=== PATIENT | male | born 1950 | race Caucasian/White ===

== ENCOUNTER 2019-05-20 20:47 | Inpatient (IN) | payer OTHER, MEDICAID ==
[~2019-05-20] VITALS: Ht 160 cm; Wt 75.7 kg
[2019-05-20 20:56] VITALS: BP_SYST 141
[2019-05-20] MEDS ORDERED: LEVE500T9 PO (20:56)
[2019-05-20] MEDS ORDERED: IPRA3AMP9 INH ×2 (20:56→21:10)
[2019-05-20] MEDS ORDERED: DIGO250T78 PO (20:57)
[2019-05-20] MEDS ORDERED: LIP10 PO (20:58)
[2019-05-20] MEDS ORDERED: FAMO20TA8 PO (20:59)
[2019-05-20] MEDS ORDERED: PRED5TAB PO (21:00)
[2019-05-20] MEDS ORDERED: LORA10TA7 PO (21:00)
[2019-05-20] MEDS ORDERED: CALC500T87 PO (21:06)
[2019-05-20] MEDS ORDERED: CARB15DR93 OT (21:06)
[2019-05-20] MEDS ORDERED: POLY15DR31 OP (21:07)
[2019-05-20] MEDS ORDERED: MECL-110 PO (21:08)
[2019-05-20] MEDS ORDERED: CAT.1 PO (21:09)
[2019-05-20] MEDS ORDERED: HYDR-4272 PO (21:10)
--- NOTE | 2019-05-20 21:10 | NUR ---
Patient to ER bed 07 to gown for evaluation. Side rails up.
[2019-05-20] MEDS ORDERED: ACET-2165 PO ×2 (21:11→21:14)
[2019-05-20] MEDS ORDERED: ACET-2634 PO (21:13)
[2019-05-20] MEDS ORDERED: AMIT25TA9 PO (21:17)
[2019-05-20] MEDS ORDERED: ZOLP5TAB2 PO (21:17)
[2019-05-20] MEDS ORDERED: SERT50TA PO (21:18)
[2019-05-20] MEDS ORDERED: SER100 PO (21:22)
[2019-05-20] MEDS ORDERED: SSREG SUBCUT (21:28)
[2019-05-20 21:31] LABS: BASOPHILS # (AUTO) 0.1 K/uL (0.0-0.2); BASOPHILS % (AUTO) 0.7 % (0.0-2.0); EOSINOPHILS # (AUTO) 0.1 K/uL (0.0-0.4); EOSINOPHILS % (AUTO) 0.6 % (0.0-4.0); HEMATOCRIT 43.9 % (36-54); HEMOGLOBIN 14.8 g/dL (14.0-18.0); LYMPHOCYTES # (AUTO) 1.5 K/uL (1.0-5.5); LYMPHOCYTES % (AUTO) 14.6 % (20.5-51.5); MEAN CORPUSCULAR HEMOGLOBIN 30 pg (27-31); MEAN CORPUSCULAR HGB CONC 34 % (32-36); MEAN CORPUSCULAR VOLUME 88 fL (79.0-98.0); MONOCYTES # (AUTO) 0.7 K/uL (0.0-1.0); MONOCYTES % (AUTO) 6.4 % (1.7-9.3); NEUTROPHILS # (AUTO) 8.1 K/uL (1.8-7.7); NEUTROPHILS % (AUTO) 77.7 % (40.0-70.0); PLATELET COUNT (AUTO) 256 K/uL (130-430); RED BLOOD CELL COUNT(AUTO) 5.01 MIL/uL (4.2-6.2); RED CELL DISTRIBUTION WIDTH 14.4 % (9.0-15.0); WHITE BLOOD COUNT (AUTO) 10.4 K/uL (4.8-10.8)
[2019-05-20] MEDS ORDERED: NACL 0.9% 1,000 ML IV ONE (21:39)
--- NOTE | 2019-05-20 21:44 | NUR ---
Medication reconciliation completed with information provided by Charlotte. Any prior medication reconciliation on file was reviewed and corrected.
--- NOTE | 2019-05-20 21:45 | NUR ---
Dr Love at bedside examining patient
--- NOTE | 2019-05-20 21:46 | NUR ---
Pt brought by ambulance, A&Ox4, weakness noted on L side of body due to Hx of stroke, per staff members pt has increase agitation and has been breaking objects, skin pink and warm, cap refill <3, VSS, respirations even and unlabored, pt calm and coperative at this time, will cont to monitor.
--- NOTE | 2019-05-20 21:48 | NUR ---
Attempted to start I&O catheter x 2, unable to obtain urine, Dr Love notified.
--- NOTE | 2019-05-20 21:50 | NUR ---
Pt off the unit for CT
--- NOTE | 2019-05-20 21:55 | NUR ---
Attempted I&0 catheter, unable to obtain urine
--- NOTE | 2019-05-20 22:04 | NUR ---
Pt returned from CT on stable condition
[2019-05-20 22:05] LABS: PROTHROMBIN TIME 10.1 SECS (9.5-12.5)
--- NOTE | 2019-05-20 22:14 | NUR ---
Pt A&Ox3, VSS, respirations even and unlabored
[2019-05-20 22:25] LABS: CREATININE 0.88 mg/dL (0.55-1.30); POTASSIUM 3.3 mmol/L (3.5-5.1)
[2019-05-20 22:30] LABS: ALBUMIN 2.6 g/dL (3.4-4.8); TOTAL BILIRUBIN 0.7 mg/dL (0.0-1.0)
--- NOTE | 2019-05-20 23:21 | NUR ---
Patient's code status is DNR paperwork completed and placed in chart.
[2019-05-21 00:06] LABS: THYROID STIMULATING HORMONE 0.89 uIu/mL (0.34-4.82)
[2019-05-21 00:07] LABS: DIGOXIN 1.9 ng/mL (0.80-2.00)
--- NOTE | 2019-05-21 00:35 | NUR ---
PATIENT HAD A BOWEL MOVEMENT. CLEANED AND SHEETS CHANGED.
--- NOTE | 2019-05-21 00:50 | NUR ---
Patient will be admitted to care of DR. Hall. Admitted to Med Surg unit. Will go to room 113A. Belongings list completed. Summary report printed. Report will be given at bedside.
--- NOTE | 2019-05-21 00:51 | NUR ---
Transfer to [facility]. IV present no sign or symptom of infiltration.
--- NOTE | 2019-05-21 00:58 | NUR ---
ADMISSION: The patient, JEAN CARLOS MENDEZ, 68 y/o, M admitted by YOHANA WOMACK MD, was given written information regarding hospital policies, unit procedures and contact persons.
--- NOTE | 2019-05-21 01:20 | NUR ---
Pt is screaming out loud and attempting to get out of bed. Pt is restless and will not follow directions to stay in bed. Contacted Dr. Hall and orders given for bilateral soft wrist restraints and IV Ativan. Addendum: 05/21/19 at 0254 by Michela Walls RN RN called pt's contact Lovely Navarro to obtain consent for restraints, but got voice mail. RN left a voice mail message only stating that the contact should call back. Left call back phone number on the voice mail. RN then contacted pt's cousin Syd Bhagat Sr who is also listed as a contact. Per Constance Olayinka, Lovely Navarro has DPOA. After RN informed him Lovely could not be reached at this time, Mr. Bhagat gave the okay to apply restraints on pt for his safety.
[2019-05-21] MEDS: LORazepam 2 MG/ML VIAL IVP PRN ×3 (01:26→17:48)
--- NOTE | 2019-05-21 01:26 | NUR ---
Pt remains restless and still attempting to get out of bed. Ativan 1mg was given IVP. Fall, seizure and safety and safety precautions are in place. Pt's room is across from the Nurses' Station.
[2019-05-21 01:30] VITALS: BP_SYST 159
[2019-05-21] MEDS ORDERED: IPRATROPIUM/ALBUTEROL SULFATE 3 ML AMPUL.NEB (DUONEB) INH PRN ×2 (02:00)
[2019-05-21] MEDS ORDERED: ACETAMINOPHEN 500 MG TABLET PO PRN (02:00)
[2019-05-21] MEDS ORDERED: PEG 400/HYPROMELLOSE/GLYCERIN 15 ML DROPS OP PRN ×2 (02:00→06:53)
[2019-05-21] MEDS ORDERED: ACETAMINOPHEN 325 MG TABLET PO PRN ×2 (02:00)
[2019-05-21] MEDS ORDERED: cloNIDine HCL 0.1 MG TABLET PO PRN (02:00)
[2019-05-21] MEDS ORDERED: INSULIN REGULAR, HUMAN 100 UNITS/ML, 10 ML VIAL (humuLIN R) SUBCUT PRN (02:00)
[2019-05-21] MEDS ORDERED: MECLIZINE HCL 25 MG TABLET (ANITVERT) PO PRN (02:00)
[2019-05-21] MEDS ORDERED: LORATADINE 10 MG TABLET PO PRN (02:00)
--- NOTE | 2019-05-21 02:00 | NUR ---
Pt is still restless and saying, "Call the police." Bilateral soft wrist restraints are in place and no circulatory impairment or respiratory distress noted.
--- NOTE | 2019-05-21 04:00 | NUR ---
Pt is sleeping quietly in bed. Saline lock in RH is without any signs of infiltration. Fall, seizure and safety precautions are in place.
[2019-05-21] MEDS ORDERED: GLUCOSE 15 GM GEL (in 37.5 GM TUBE) PO PRN (04:30)
--- NOTE | 2019-05-21 05:05 | NUR ---
CONSULT: CONSULT CALLED FOR DR. KAITLIN Barker SPOKE WITH LISSA LÓPEZ REASON FOR CONSULT: ENCEPHALOPATHY AND BEHAVIORAL PROBLEMS WITH HX CVA REQUESTING CONSULT: TONG WATERSIDE WORKER PHONE NUMBER: [phone]
--- NOTE | 2019-05-21 05:08 | NUR ---
CONSULT: CONSULT CALLED FOR DR. ALBERT I SPOKE WITH LISSA LÓPEZ REASON FOR CONSULT: CONFUSION REQUESTING CONSULT: DR. WOMACK PROCESS COACH PHONE NUMBER: [phone]
--- NOTE | 2019-05-21 06:00 | NUR ---
Pt is sleeping quietly in bed. All pt's needs were attended to. Fall and safety precautions are in place. Will endorse to day shift nurse.
[2019-05-21 07:07] LABS: BASOPHILS % (AUTO) 0.4 % (0.0-2.0); EOSINOPHILS # (AUTO) 0.2 K/uL (0.0-0.4); EOSINOPHILS % (AUTO) 2.1 % (0.0-4.0); HEMATOCRIT 45.2 % (36-54); HEMOGLOBIN 14.9 g/dL (14.0-18.0); LYMPHOCYTES # (AUTO) 2.2 K/uL (1.0-5.5); MEAN CORPUSCULAR HEMOGLOBIN 29 pg (27-31); MEAN CORPUSCULAR HGB CONC 33 % (32-36); MEAN CORPUSCULAR VOLUME 89 fL (79.0-98.0); MONOCYTES # (AUTO) 0.7 K/uL (0.0-1.0); MONOCYTES % (AUTO) 7.5 % (1.7-9.3); NEUTROPHILS # (AUTO) 5.9 K/uL (1.8-7.7); PLATELET COUNT (AUTO) 246 K/uL (130-430); RED BLOOD CELL COUNT(AUTO) 5.07 MIL/uL (4.2-6.2); RED CELL DISTRIBUTION WIDTH 14.8 % (9.0-15.0)
[2019-05-21 07:30] LABS: ALBUMIN 2.5 g/dL (3.4-4.8); CALCIUM 8.4 mg/dL (8.4-11.0); CREATININE 0.78 mg/dL (0.55-1.30); POTASSIUM 3.2 mmol/L (3.5-5.1); TOTAL BILIRUBIN 0.7 mg/dL (0.0-1.0)
--- NOTE | 2019-05-21 07:35 | NUR ---
OPENING NOTES: RECEIVED PATIENT FROM CNC LATHE MACHINIST NURSE. PATIENT IS ASLEEP IN BED. NO SIGNS OF DISTRESS OR SHORTNESS OF BREATH NOTED. BILATERAL WRIST RESTRAINTS IN PLACE WITH TWO FINGER LENGTH SPACE. PATIENT TOLERATING OXYGEN AT ROOM AIR. IV SITE PATENT WITH NO SIGNS OF INFILTRATION. PATIENT IN STABLE CONDITION. SAFETY, FALL, ASPIRATION AND SEIZURE PRECAUTIONS ARE IN PLACE. BED LOCKED IN LOWEST POSITION WITH CALL LIGHT IN REACH. WILL CONTINUE TO MONITOR PATIENT FOR ANY CHANGES.
[2019-05-21 08:18] VITALS: BP_SYST 136
[2019-05-21 08:26] VITALS: BP_SYST 136
[2019-05-21] MEDS ORDERED: QUEtiapine FUMARATE 100 MG TABLET PO SCH (09:00)
[2019-05-21] MEDS ORDERED: SERTRALINE HCL 50 MG TABLET PO SCH (09:00)
[2019-05-21] MEDS: PREDNISONE 5 MG TABLET PO SCH (09:37)
[2019-05-21] MEDS: AMITRIPTYLINE HCL 25 MG TABLET (ELAVIL) PO SCH ×2 (09:38→20:59)
[2019-05-21] MEDS: DIGOXIN 0.25 MG TABLET PO SCH (09:38)
[2019-05-21] MEDS: FAMOTIDINE 20 MG TABLET PO SCH (09:38)
--- NOTE | 2019-05-21 10:15 | NUR ---
RN ROUNDS: PATIENT IS AWAKE AND ALERT x1 IN BED. PATIENT DENIES ANY PAIN AT THE MOMENT. NO SIGNS OF DISTRESS OR SHORTNESS OF BREATH NOTED. PATIENT IN STABLE CONDITION. WILL CONTINUE TO MONITOR PATIENT FOR ANY CHANGES. Addendum: 05/21/19 at 1942 by Lynsey Alexander RN BILATERAL SOFT WRIST RESTRAINTS IN PLACE WITH TWO FINGER LENGTH SPACE.
[2019-05-21 12:00] VITALS: BP_SYST 134
--- NOTE | 2019-05-21 12:05 | NUR ---
RN ROUNDS: PATIENT AWAKE AND ALERT x1 IN BED. PATIENT STARTED YELLING. WHEN PATIENT WAS ASKED WHAT HE NEEDED HE RESPONDED WITH "NOTHING". NO SIGNS OF DISTRESS OR SHORTNESS OF BREATH NOTED. BILATERAL WRIST RESTRAINTS ARE INTACT WITH TWO FINGER LENGTH SPACE. PATIENT NI STABLE CONDITION. WILL CONTINUE TO MONITOR PATIENT FOR ANY CHANGES.
[2019-05-21] MEDS ORDERED: QUEtiapine FUMARATE 100 MG TABLET PO ONE (14:00)
[2019-05-21] MEDS: DIPHENHYDRAMINE HCL 25 MG CAPSULE PO PRN ×2 (14:06→14:16)
[2019-05-21] MEDS: HALOPERIDOL 5 MG TABLET (HALDOL) PO PRN ×2 (14:06→14:16)
--- NOTE | 2019-05-21 14:24 | NUR ---
SS notes on allowed visitors: PENCIL MAKER received call from RN stating pt's DPOA is requesting to see SW. PENCIL MAKER met with Pam Navarro (DPOA, p: [phone] and form provided and attached to chart) who is requesting that only certain family members be allowed to see patient. Admitting and nursing station has been notified. Allowed visitors for patient are: Saundra Chau (girlfriend) Viktoriya Navarro ([place] and POA) Sheba Bhagat (cousins) Meena Fagan (mother) Raymundo Vazquez (cousin)
--- NOTE | 2019-05-21 14:26 | NUR ---
RN ROUNDS: PATIENT AWAKE YELLING AND SCREAMING IN BED. NO SIGNS OF DISTRESS OR SHORTNESS OF BREATH NOTED. CALLED DR. ALBERT TO GET NEW ORDERS. PATIENT SPIT OUT MEDICATIONS AND REFUSED TO TAKE THEM. WILL CONTINUE TO MONITOR PATIENT FOR ANY CHANGES.
--- NOTE | 2019-05-21 14:26 | NUR ---
AGITATION/MD NOTIFIED: PATIENT VERY AGITATED, YELLING AND SCREAMING. DR. ALBERT CALLED TO GET ONE TIME DOSE OF HALDOL. MEDICATION ADMINISTERED. WILL CONTINUE TO MONITOR PATIENT FOR ANY CHANGES.
[2019-05-21] MEDS ORDERED: HALOPERIDOL LACTATE 5 MG/ML VIAL IM ONE (14:30)
[2019-05-21] MEDS ORDERED: DIPHENHYDRAMINE INJ 50 MG/ML VIAL IM ONE (15:45)
--- NOTE | 2019-05-21 15:57 | NUR ---
AGITATION/MD NOTIFIED: PATIENT SCREAMING AND ATTEMPTING TO GET OUT OF BED. SPOKE WITH DR. ALBERT. RECEIVED A ONE TIME ORDER FROM DR. ALBERT FOR BENADRYL. MEDICATION WAS ADMINISTERED. WILL CONTINUE TO MONITOR PATIENT FOR ANY CHANGES.
--- NOTE | 2019-05-21 16:14 | NUR ---
SS NOTES/DCP: SS received order to admit to [facility] facility but patient is still on restraints. Pt not on 5150 hold and per Pam Navarro (OA) and Kyle ([place] RN), pt does not have a mental health conservatorship.
--- NOTE | 2019-05-21 16:15 | NUR ---
RN ROUNDS: PATIENT IS SCREAMING IN BED. NO SIGNS OF DISTRESS OR SHORTNESS OF BREATH NOTED. BILATERAL SOFT WRIST RESTRAINTS IN PLACE WITH TWO FINGER LENGTH SPACES. PATIENT IN STABLE CONDITION. WILL CONTINUE TO MONITOR PATIENT FOR ANY CHANGES.
[2019-05-21 16:47] VITALS: BP_SYST 132
--- NOTE | 2019-05-21 17:48 | NUR ---
AGITATION: PATIENT CONTINUES TO YELL AND SCREAM. PRN ATIVAN WAS ADMINISTERED. WILL CONTINUE TO MONITOR PATIENT FOR ANY CHANGES.
--- NOTE | 2019-05-21 18:45 | NUR ---
CLOSING NOTES: PATIENT IS ASLEEP IN BED. NO SIGNS OF DISTRESS OR SHORTNESS OF BREATH NOTED. BILATERAL WRIST RESTRAINTS IN PLACE WITH TWO FINGER LENGTH SPACE. PATIENT TOLERATING OXYGEN AT ROOM AIR. IV SITE PATENT WITH NO SIGNS OF INFILTRATION. PATIENT IN STABLE CONDITION. SAFETY, FALL, ASPIRATION AND SEIZURE PRECAUTIONS ARE IN PLACE. BED LOCKED IN LOWEST POSITION WITH CALL LIGHT IN REACH. WILL ENDORSE PATIENT CARE TO ONCOMING SPECIFICATIONS CHECKER NURSE.
--- NOTE | 2019-05-21 19:30 | NUR ---
PM ASSESSMENT REPORT RECEIVED FROM AM RN. PT RECEIVED IN BED WITH EYES OPEN, RESPONDING TO VERBAL STIMULATION. PT IN COOPERATIVE AT THIS TIME. VSS, NO S/S OF ACUTE DISTRESS NOTED. PT ON RA. R HAND 22G TO SL. BILATERAL SOFT WRIST RESTRAINTS IN PLACE, NO S/S OF INJURY NOTED. PT DENIES ANY PAIN OR DISCOMFORT AT THIS TIME. HOB ELEVATED, BED IN LOWEST POSITION, CALL LIGHT IN REACH. WILL CONTINUE TO MONITOR PT.
[2019-05-21] MEDS: QUEtiapine FUMARATE 100 MG TABLET PO SCH (20:59)
[2019-05-21] MEDS: ATORVASTATIN 10 MG TABLET PO SCH (20:59)
[2019-05-21 22:00] VITALS: BP_SYST 118
[2019-05-22] VITALS: BP_SYST 115
--- NOTE | 2019-05-22 01:05 | NUR ---
RN ROUNDS PT RESTING COMFORTABLY IN BED WITH EYES CLOSED. BREATHING IS EVEN AND UNLABORED ON RA. VSS, NO S/S OF ACUTE DISTRESS NOTED. BILATERAL SOFT WRIST RESTRAINTS IN PLACE. NO S/S OF INJURY NOTED. WILL CONTINUE TO MONITOR PTS.
[2019-05-22] MEDS: DEXTROSE 50% JECT 50 ML DISP.SYRIN IVP PRN (06:08)
--- NOTE | 2019-05-22 06:25 | NUR ---
BLOOD GLUCOSE AM BLOOD GLUCOSE 67. PT LETHARGIC AND UNABLE TO SWALLOW SMALL AMOUNT OF JUICE AT THIS TIME. D50 GIVEN PER ORDERS. BLOOD GLUCOSE RECHECKED IN 15 MINUTES AND FOUND TO BE 213. WILL CONTINUE TO MONITOR PT.
--- NOTE | 2019-05-22 06:25 | NUR ---
RESTRAINTS DISCONTINUED PT QUIET AND COOPERATIVE THROUGHOUT NOC SHIFT. THIS AM PT IS LETHARGIC AND SLEEPING, RESPONDING TO VERBAL STIMULATION. BILATERAL SOFT WRIST RESTRAINTS DISCONTINUED AT THIS TIME. WILL CONTINUE TO MONITOR PT.
--- NOTE | 2019-05-22 07:16 | NUR ---
ENDORSEMENT BEDSIDE REPORT GIVEN TO AM RN USING SBAR APPROACH. NO S/S OF ACUTE DISTRESS NOTED. ALL PT NEEDS MET.
--- NOTE | 2019-05-22 07:20 | NUR ---
AM ROUNDS: RECEIVED REPORT FROM NIGHT NURSE JOSH.OFF BILATERAL WRIST RESTRAINT THIS MORNING,PATIENT SLEEPING. CALL LIGHT WITH IN REACH. BED LOCKED AT LOWEST POSITION. BED ALARM ON. STABLE THIS TIME.
[2019-05-22 07:53] VITALS: BP_SYST 121
[2019-05-22] MEDS: SERTRALINE HCL 50 MG TABLET PO SCH (08:16)
[2019-05-22] MEDS: FAMOTIDINE 20 MG TABLET PO SCH (08:17)
[2019-05-22] MEDS: DIGOXIN 0.25 MG TABLET PO SCH (08:17)
[2019-05-22] MEDS: QUEtiapine FUMARATE 100 MG TABLET PO SCH ×2 (08:17→20:35)
[2019-05-22] MEDS: AMITRIPTYLINE HCL 25 MG TABLET (ELAVIL) PO SCH ×2 (08:17→20:35)
[2019-05-22] MEDS: PREDNISONE 5 MG TABLET PO SCH (08:17)
--- NOTE | 2019-05-22 10:04 | NUR ---
Nutrition Update Stephen Scale 14 noted. Pt admitted for encephalopathy and behavior problem. Diet: CCHO, cardiac BMI: 29.8 kg/m2 RD to follow per nutrition care standards.
--- NOTE | 2019-05-22 10:31 | NUR ---
RN ROUNDS: SLEEPING .NO ACUTE DISTRESS.
[2019-05-22] MEDS ORDERED: MUPIROCIN 2% TOPICAL OINTMENT 22 GM NS ONE (11:00)
[2019-05-22] MEDS ORDERED: MUPIROCIN 1 GM OIN.PF.APP NS ONE (11:00)
--- NOTE | 2019-05-22 11:08 | NUR ---
Blood Sugar: Blood wunpv=068vp/dl ,no insulin needed per sliding scale.
[2019-05-22 11:43] VITALS: BP_SYST 104
--- NOTE | 2019-05-22 12:00 | NUR ---
FOLLOW UP "ON HOLD " ORDER TO DR ALBERT PRIOR TO TRANSFER TO [facility] PAGED DR ALBERT 3X WAITING TO CALL BACK RE 51:50 REQUIREMENT PRIOR TO TRANSFER TO [facility].
--- NOTE | 2019-05-22 12:40 | NUR ---
LUNCH: FEEDER,CAR RENTAL DELIVERER FED PATIENT SLOWLY.NEEDS A PUREE DIET,WILL INFORM MD. COUGHING A LITTLE WHEN DRINKING WATER. ASPIRATION PRECAUTION RENDERED.
--- NOTE | 2019-05-22 15:38 | NUR ---
RN ROUNDS: AWAKE. NO DISTRESS.
[2019-05-22 16:29] VITALS: BP_SYST 93
--- NOTE | 2019-05-22 16:50 | NUR ---
SPOKE TO DR ALBERT RE ORDER FOR 5150 PRIOR TO TRANSFER TO [facility] SPOKE TO DR ALBERT MADE AWARE THAT PATIENT IS MEDICALLY CLEARED AND OFF FROM RESTRAINTS. NO EPISODES OF YELLING NOTED AFTER SEROQUEL WAS INCREASED FROM LAST NIGHT. DR ALBERT MADE AWARE THAT 5150 OR ON HOLD ORDER NEEDED FOR PATIENT PRIOR TO TRANSFER TO [facility]. DR ALBERT SAID" WHO SAID THAT?" MD WANTS FEED MILL TENDER OR REFUSE COLLECTOR SUPERVISOR TO CALL HIM. DR ALBERT SAID, PT CAN BE TRANSFER AND NO NEED FOR "ON HOLD ORDER".
--- NOTE | 2019-05-22 16:57 | NUR ---
BLOOD SUGAR: NZ=449ES/DL,NO INSULIN COVERAGE NEEDED PER SLIDING SCALE.
--- NOTE | 2019-05-22 18:50 | NUR ---
WRIST RESTRAINT: PUT BACK BILATERAL SOFT WRIST RESTRAINT ORDERED.PATIENT VERY AGITATED AND SCREAMING LOUD.
[2019-05-22] MEDS: LORazepam 2 MG/ML VIAL IVP PRN (18:51)
--- NOTE | 2019-05-22 18:55 | NUR ---
IV ATIVAN: PATIENT VERY AGITATED.ATIVAN 1 MG IVP GIVEN NEEDED. NO COMPLICATIONS NOTED THIS TIME.
--- NOTE | 2019-05-22 18:56 | NUR ---
CLOSING NOTES: NO ACUTE DISTRESS. PRACTICE GUIDELINES MET THROUGH THE SHIFT.BED LOCKED AT LOWEST POSITION. BED ALARM ON. CALMER THIS TIME.
--- NOTE | 2019-05-22 19:35 | NUR ---
ROUNDS PATIENT IN BED, ON BILATERAL SOFT WRIST RESTRAINTS, YELLING AT THIS TIME, VITALS STABLE. NO SIGNS OF ANY PAIN AND DISCOMFORT NOTED. ASSESSMENT DONE AN DOCUEMNTED. SEE FLOWSHEET. NEEDS ATTENDED TO. SAFETY MEASURES IN PLACED. WILL CONTINUE TO MONITOR.
[2019-05-22 20:03] LABS: CALCIUM 8.8 mg/dL (8.4-11.0); CREATININE 1.05 mg/dL (0.55-1.30); POTASSIUM 4.9 mmol/L (3.5-5.1)
[2019-05-22] MEDS: MUPIROCIN 2% TOPICAL OINTMENT 22 GM NS SCH (20:34)
[2019-05-22] MEDS: ATORVASTATIN 10 MG TABLET PO SCH (20:35)
--- NOTE | 2019-05-22 21:10 | NUR ---
MEDICATIONS DUE MEDICATIONS GIVEN SCHEDULED, TOLERATED WELL. WILL CONTINUE TO MONITOR.
--- NOTE | 2019-05-23 00:13 | NUR ---
PATIENT RESTING: Patient resting quietly. No acute distress noted. Vital signs within normal range.
[2019-05-23 00:45] VITALS: BP_SYST 110
--- NOTE | 2019-05-23 02:13 | NUR ---
PATIENT RESTING: Patient resting quietly. No acute distress noted. Vital signs within normal range.
--- NOTE | 2019-05-23 04:15 | NUR ---
ROUNDS PATIENT ASLEEP, RESPIRATIONS EVEN AND UNLABORED, WILL CONTINUE TO MONITOR.
[2019-05-23] MEDS: LORazepam 2 MG/ML VIAL IVP PRN (04:50)
--- NOTE | 2019-05-23 06:39 | NUR ---
CLOSING NOTES PATIENT RESTING COMFORTABLY IN BED, VITALS STABLE, NO PAIN AT THIS TIME. ALL NEEDS ATTENDED TO. SAFETY MEASURES MAINTAINED. CALL LIGHT PLACED WITHIN REACH.
[2019-05-23 06:43] LABS: BASOPHILS % (AUTO) 0.5 % (0.0-2.0); EOSINOPHILS # (AUTO) 0.2 K/uL (0.0-0.4); EOSINOPHILS % (AUTO) 2.5 % (0.0-4.0); HEMATOCRIT 39.7 % (36-54); HEMOGLOBIN 13.3 g/dL (14.0-18.0); LYMPHOCYTES # (AUTO) 2.1 K/uL (1.0-5.5); LYMPHOCYTES % (AUTO) 25.5 % (20.5-51.5); MEAN CORPUSCULAR HEMOGLOBIN 30 pg (27-31); MEAN CORPUSCULAR HGB CONC 33 % (32-36); MEAN CORPUSCULAR VOLUME 89 fL (79.0-98.0); MONOCYTES # (AUTO) 0.6 K/uL (0.0-1.0); MONOCYTES % (AUTO) 7.7 % (1.7-9.3); NEUTROPHILS # (AUTO) 5.1 K/uL (1.8-7.7); PLATELET COUNT (AUTO) 238 K/uL (130-430); RED BLOOD CELL COUNT(AUTO) 4.46 MIL/uL (4.2-6.2); RED CELL DISTRIBUTION WIDTH 14.6 % (9.0-15.0); WHITE BLOOD COUNT (AUTO) 8.1 K/uL (4.8-10.8)
[2019-05-23] MEDS: DEXTROSE 50% JECT 50 ML DISP.SYRIN IVP PRN (06:49)
[2019-05-23 08:00] VITALS: BP_SYST 133
--- NOTE | 2019-05-23 08:00 | NUR ---
INITIAL NOTES PT IS SLEEPING AND OPENS EYES WHEN STIMULATED, ALERT AND ORIENTED TO SELF ONLY. IN RA, NO SOB, LUNGS SOUNDS CTA, FACIAL DROOP OBSERVED. MUMBLES, VSS,A FEBRILE, ON RESTRAINTS AND THEN REMOVED, INTRUCTED PT NOT TO GET OUT OF BED AND NOT TO PULL ANY IV LINES. PT NEED REINFORCEMENT, CALL LIGHT WITHIN REACH
[2019-05-23] MEDS: MUPIROCIN 2% TOPICAL OINTMENT 22 GM NS SCH ×2 (08:27→22:59)
[2019-05-23] MEDS: PREDNISONE 5 MG TABLET PO SCH (08:27)
[2019-05-23] MEDS: FAMOTIDINE 20 MG TABLET PO SCH (08:27)
[2019-05-23] MEDS: SERTRALINE HCL 50 MG TABLET PO SCH (08:28)
[2019-05-23] MEDS: DIGOXIN 0.25 MG TABLET PO SCH (08:28)
[2019-05-23] MEDS: AMITRIPTYLINE HCL 25 MG TABLET (ELAVIL) PO SCH ×2 (08:28→22:59)
[2019-05-23] MEDS: QUEtiapine FUMARATE 100 MG TABLET PO SCH ×4 (08:30→23:00)
--- NOTE | 2019-05-23 09:55 | NUR ---
PT IS SLEEPING AND EASILY TO BE AROUSED, TOOK ALL PO MEDS WITHOUT ANY PROBLEM, NO SOB, CALL LIGHT WITHIN REACH
[2019-05-23 10:06] LABS: NEUTROPHILS % (AUTO) 63.8 % (40.0-70.0)
[2019-05-23 12:00] VITALS: BP_SYST 118
--- NOTE | 2019-05-23 12:30 | NUR ---
PT HAD EPISODE OF AGITATION MAKING NOISE FOR A SHORT PERIOD OF TIME AND PT WENT BACK TO SLEEP, CALL LIGHT WITHIN REACH
[2019-05-23 16:46] VITALS: BP_SYST 137
[2019-05-23] MEDS: INSULIN REGULAR, HUMAN 100 UNITS/ML, 10 ML VIAL (humuLIN R) SUBCUT PRN (17:35)
--- NOTE | 2019-05-23 18:30 | NUR ---
PT PULLED IV OUT, STARTED NEW IV ON RIGHT ARM WITH 22 G , GOOD BLOOD RETURN. INSTRUCTED PT TO PROTECT THE IV AND NOT TO PULL IT AGAIN. PT NEED REINFORCEMENT, WILL CONTINUE TO MONITOR
[2019-05-23 19:00] VITALS: BP_SYST 135
--- NOTE | 2019-05-23 19:15 | NUR ---
change of shift.pt.presents isolation;contact;mrsa;nares.pt.presents affect;lethargic.loc;confused.pt.presents hx;cva; pt.presents facial;rt.sided drooping.profound.pt.presents iv acces;activity:bedrest.pt.presents iv access;location; lt.wrist;iv lock.general status stable.respiratory status stable@room air;unlabored.call light/telephone w/in reach of the pt.
[2019-05-23 20:00] VITALS: BP_SYST 135
--- NOTE | 2019-05-23 20:00 | NUR ---
pt.assessed v/s assessed;values w/in normal limits.pt.presents affect;calm.loc;confused.pt.presents speech;slurred;2/t facial droop.rt.side;facial. pt.assessed for cleanliness.pt repositioned.pt.presents iv acces;intact;patent;iv lock.general status stable.respiratory status stab;le:@room air;unlabored.o2-sat%=96%.call light/telephone placed w/in reach of the pt.
--- NOTE | 2019-05-23 20:30 | NUR ---
i have assessed the blood glucose;;value;70mg/dl x2 assessments.
--- NOTE | 2019-05-23 21:00 | NUR ---
2100pmedicatons administered.i have feed the pt.pt capable to consume medications:mixture:pudding/orange juice. to f/u re;blood glucose value;70mg/dl post prandal.
--- NOTE | 2019-05-23 22:00 | NUR ---
pt.assessed.pt.presents quiescent affect;calm,somnolent.pt.assessed for cleanliness.pt.repositioned.iv access intact;lock. general status stable.respiratory status stable;unlabored;02-sat%=96%.call light/telephone placed w/in reach of the pt.
[2019-05-23] MEDS: ATORVASTATIN 10 MG TABLET PO SCH (22:59)
[2019-05-23] MEDS: ZOLPIDEM TARTRATE 5 MG TABLET PO PRN (23:00)
[2019-05-23] MEDS: LORazepam 1 MG TABLET PO PRN (23:01)
[2019-05-24] VITALS (7 sets, daily range): BP systolic 101–156
--- NOTE | 2019-05-24 | NUR ---
pt.assessed.v/s assessed.values w/in normal limits.pt.assessed for cleanliness.pt.repositioned.i have assessed the blood glucose:post prandal snacks. value;150mg/dl.general status stable.respiratory status stable;unlabored;02-sat%=96%.call light/telephone placed w/in reach of the pt.
--- NOTE | 2019-05-24 02:00 | NUR ---
pt assessed.pt.presents quiescent affect;calm,somnolent.pt assessed for cleanliness.pt.repositioned.general status stable. respiratory status stable;unlabored.call light/telephone placed w/.in reach of the pt.
--- NOTE | 2019-05-24 04:00 | NUR ---
pt assessed pt.presents quiescent affect;calm somnolrent.pt.assessed for cleanliness.pt.repositioned.general status stable. respiratory status stable;unlabored.call light.telephone placed w/in reach of the pt.
--- NOTE | 2019-05-24 06:15 | NUR ---
pt.assessed.pt.assessed for cleanliness.pt.cleaned.i have assessed the blood glucose;value;72mg/dl.i have fed the pt.to re-assess the blood glucose.call light/telephone w/in reach of the pt.
--- NOTE | 2019-05-24 07:05 | NUR ---
blood glucose re-assessed;value:93mg/dl.pt agreed to additional orange juice.i have provided the orange juice.
--- NOTE | 2019-05-24 08:00 | NUR ---
Opening notes, Received pt in bed, pt is aaox1, no sob, no resp distress. notes right sided facial droop, and weakness on the left side.
[2019-05-24] MEDS: MUPIROCIN 2% TOPICAL OINTMENT 22 GM NS SCH ×2 (08:37→20:29)
[2019-05-24] MEDS: PREDNISONE 5 MG TABLET PO SCH (08:37)
[2019-05-24] MEDS: QUEtiapine FUMARATE 100 MG TABLET PO SCH ×4 (08:37→20:22)
[2019-05-24] MEDS: AMITRIPTYLINE HCL 25 MG TABLET (ELAVIL) PO SCH ×2 (08:38→20:22)
[2019-05-24] MEDS: SERTRALINE HCL 50 MG TABLET PO SCH (08:38)
[2019-05-24] MEDS: FAMOTIDINE 20 MG TABLET PO SCH (08:38)
[2019-05-24] MEDS: DIGOXIN 0.25 MG TABLET PO SCH (08:39)
--- NOTE | 2019-05-24 09:30 | NUR ---
pt given breakfast of mashed banana and some apple sauce. meds given with apple sauce.
--- NOTE | 2019-05-24 12:30 | NUR ---
pt assisted with lunch, pt able to take some of his pureed diet. turned and repositioned pt.
--- NOTE | 2019-05-24 16:00 | NUR ---
pt given ice cream, pt tolerated well, no coughing noted.
--- NOTE | 2019-05-24 16:11 | NUR ---
Paged dr victor to get order for dc.
--- NOTE | 2019-05-24 17:10 | NUR ---
pt in bed, turned and repositioned, no s/s of pain, pt yelling, given medications with apple sauce.
--- NOTE | 2019-05-24 18:42 | NUR ---
TRANSPORT [facility]ED [facility] AT 2130 [facility] [address] [facility] [facility]
--- NOTE | 2019-05-24 19:20 | NUR ---
closing notes, pt has been stable, no agitation noted, no fever. no sob, no c/o pain, endorsed to night rn deonte.
--- NOTE | 2019-05-24 19:27 | NUR ---
Initial Notes Received handoff report from offgoing dayshift nurse Sandra at the bedside. Patient is resting comfortably in bed, awake and alert. No SOB, no acute distress, no complaints of pain at this time. IV site intact, dressing clean and dry, saline locked. Bed is locked, in the lowest position, 2x side rails up, bed alarm is on. Call light is within reach. Will continue with plan of care.
--- NOTE | 2019-05-24 19:27 | NUR ---
Initial Notes Received handoff report from [facility] nurse Colindres-CEDRIC at the bedside. Patient is resting comfortably in bed, eyes closed. Breathing even and unlabored. Visible chest rise and fall noted. IV site intact, dressing clean and dry, currently infusing IVF per MD order, see eMAR. Bed is locked, in the lowest position, 2x side rails up, bed alarm is on. Call light is within reach. Family is at the bedside. Instructed family to call for assistance if needed, and also educated them on how to use the call light system. Will continue with plan of care. Addendum: 05/24/19 at 1927 by Marcela Nunes RN ERROR* Wring patient
--- NOTE | 2019-05-24 19:32 | NUR ---
CALLED AND INFORMED [facility] AND INFORMED THEM THAT THE PT IS ISO FOR MRSA CONNIE AND VICENTE STEELE VENDOR MANAGEMENT SPECIALIST AND SAID THAT SHE WILL HAVE TO WORK ON IT TOMORROW. WILL INFORM DOCTOR WOMACK.
--- NOTE | 2019-05-24 19:35 | NUR ---
Notified by charge nurse that the patient is unable to be discharged at this time due to no available beds at [facility]. Will continue with plan of care.
--- NOTE | 2019-05-24 20:00 | NUR ---
PATIENT IS CONFUSED. TAKING THE PULSE OXIMETRY AND BRINGING IT UP TO HIS MOUTH AND SAYING, "HELLO, WHO'S THERE?" EDUCATED PATIENT THAT THE PULSE OXIMETRY DEVICE IN NOT A TELEPHONE. PATIENT DID NOT VERBALIZE UNDERSTANDING. PROVIDED PATIENT WITH THE CALL LIGHT AND TELEPHONE, AND EDUCATED PATIENT ON HOW TO PROPERLY USE IT. WILL CONTINUE WITH PLAN OF CARE.
[2019-05-24] MEDS: ATORVASTATIN 10 MG TABLET PO SCH (20:22)
[2019-05-24] MEDS: FLU VACC TS2019(65UP)/MF59C/PF 45 MCG/0.5 ML SYRINGE I.M. PRN (20:31)
[2019-05-24] MEDS: ZOLPIDEM TARTRATE 5 MG TABLET PO PRN (22:28)
[2019-05-24] MEDS: LORazepam 1 MG TABLET PO PRN (22:28)
--- NOTE | 2019-05-24 22:34 | NUR ---
PATIENT IS YELLING HELP. WHEN ASKING THE PATIENT WHAT HE NEEDS HELP WITH, PATIENT IS UNABLE TO STATE, AND IS JUST YELLING HELP. ASKED IF THE PATIENT NEEDS TO BE CHANGED, PATIENT STATES "NO, HELP." ASKED THE PATIENT IF HE IS COMFORTABLY, PATIENT YELLS "HELP." PATIENT KEEPS YELLING "NAT MORGAN SAM, EMMA. HELP." PROVIDED PATIENT WITH ATIVAN PO PRN PER MD ORDER, SEE EMAR FOR DETAILS. WILL CONTINUE WITH PLAN OF CARE.
--- NOTE | 2019-05-24 22:49 | NUR ---
CALLED SHAWN EUGENE [phone] REGARDING THE PATIENT NOT BEING ABLE TO DISCHARGE TONIGHT DUE TO NOT HAVING BED AVAILABLE AT THIS TIME. EUGENE SHAWN STATED THAT SHE DOES NOT WANT THE PATIENT TO BE DISCHARGED BACK TO [facility]. EUGENE STATES THAT FACILITY IS UNABLE TO HANDLE THE PATIENT AND "THAT IS THE REASON THE PATIENT GO SENT TO [facility]." EUGENE STATES THAT SHE HAS REQUESTED FOR DR ALBERT TO CALL HER A FEW DAYS AGO; HOWEVER, SHE HAS NOT RECEIVED A CALL YET. EUGENE STATES SHE WOULD LIKE DR ALBERT OR DR WOMACK TO CALL HER WHEN THEY COME IN. CHARGE NURSE MADE AWARE. Addendum: 05/24/19 at 2303 by Marcela Nunes RN CORRECTION OF NOTES* CALLED SHAWN EUGENE [phone] REGARDING THE PATIENT NOT BEING ABLE TO DISCHARGE TONIGHT DUE TO NOT HAVING [facility]OL[facility] BED AVAILABLE AT THIS TIME. EUGENE SHAWN STATED THAT SHE DOES NOT WANT THE PATIENT TO BE DISCHARGED BACK TO [facility]. EUGENE STATES THAT FACILITY IS UNABLE TO HANDLE THE PATIENT AND "THAT IS THE REASON THE PATIENT GO SENT TO [facility]." EUGENE STATES THAT SHE HAS REQUESTED FOR DR ALBERT TO CALL HER A FEW DAYS AGO; HOWEVER, SHE HAS NOT RECEIVED A CALL YET. EUGENE STATES SHE WOULD LIKE DR ALBERT OR DR WOMACK TO CALL HER WHEN THEY COME IN. CHARGE NURSE MADE AWARE. EUGENE ALSO STATED THAT IF RESTRAINTS ARE NEEDED FOR THE PATIENT, SHE WILL APPROVE IT BECAUSE "I DO NOT WANT THE PATIENT TO GET HURT OR FALL OUT OF BED."
--- NOTE | 2019-05-24 23:48 | NUR ---
ENDORSEMENT OF CARE HANDOFF REPORT GIVEN TO KING LEE-CEDRIC AT THE BEDSIDE. PATIENT IS RESTING COMFORTABLY IN BED, EYES CLOSED. BREATHING EVEN AND UNLABORED WITH VISIBLE CHEST RISE AND FALL NOTED. NO SOB, NO ACUTE DISTRESS, NO SIGNS OF PAIN OR FACIAL GRIMACING. IV SITE INTACT, DRESSING CLEAN AND DRY, SALINE LOCKED. BED IS LOCKED, IN THE LOWEST POSITION, 2X SIDE RAILS UP, BED ALARM IS ON. SEIZURE PADS ON. CALL LIGHT WITHIN REACH. ALL NEEDS HAVE BEEN MET AT THIS TIME.
--- NOTE | 2019-05-25 | NUR ---
SBAR REPORT OBTAINED FROM KEE STEELE .
[2019-05-25 00:34] VITALS: BP_SYST 116
--- NOTE | 2019-05-25 02:29 | NUR ---
Patient Resting this hour frequent monitor for SAFETY FALL MEASURES IMPLEMENTED .
--- NOTE | 2019-05-25 08:00 | NUR ---
Initial Note: Received bedside report from retail shift manager nurse. pt is sleeping comfortably in bed. pt on room air, rise and fall of chest noted, no distress at this time. IV access is intact. safety precautions in place: bed locked in lowest position, alarm on, call light within reach. will continue plan of care.
[2019-05-25 08:05] VITALS: BP_SYST 118
[2019-05-25] MEDS: SERTRALINE HCL 50 MG TABLET PO SCH (08:25)
[2019-05-25] MEDS: FAMOTIDINE 20 MG TABLET PO SCH (08:25)
[2019-05-25] MEDS: AMITRIPTYLINE HCL 25 MG TABLET (ELAVIL) PO SCH ×2 (08:26→21:38)
[2019-05-25] MEDS: QUEtiapine FUMARATE 100 MG TABLET PO SCH ×4 (08:26→21:39)
[2019-05-25] MEDS: DIGOXIN 0.25 MG TABLET PO SCH (08:26)
[2019-05-25] MEDS: PREDNISONE 5 MG TABLET PO SCH (08:26)
[2019-05-25] MEDS: MUPIROCIN 2% TOPICAL OINTMENT 22 GM NS SCH ×2 (08:30→21:00)
--- NOTE | 2019-05-25 10:15 | NUR ---
pt given bedbath with assist from massimo evans, turned repositioned, pt;s dpoa at bedside. requesting to be called by dr ferrera. will endorse to next nurse.
--- NOTE | 2019-05-25 10:57 | NUR ---
Discharge Planning/Social Service Note: FACETER met with SHAWN Orozco on nursing unit. Pam expressed that she does not want pt to return to [place] due to pt stilling having episodes of "calling out"; per Pam pt was sent to hospital due to pt "calling out and having a change in behaviors". Pam states that she wants to speak to the psychiatrist to discuss pt's increased "calling out/behaviors". Pam states that pt's mother lives in [place] and Pam lives in [place]; pt's family and DPOA would like pt moved closer to them. FACETER explained that DPOA/family can look for alternative SNF placement once pt is returned to [place]. FACETER provided brochures for SNFs in the area for DPOA to look at. FACETER encouraged DPOA to visit SNFs and explain that DPOA wants pt moved closer to her. Pam is agreeable to pt returning to [place] once his "calling out/behaviors" have been addressed.
[2019-05-25 12:20] VITALS: BP_SYST 149
[2019-05-25] MEDS: INSULIN REGULAR, HUMAN 100 UNITS/ML, 10 ML VIAL (humuLIN R) SUBCUT PRN (12:35)
--- NOTE | 2019-05-25 13:42 | NUR ---
PT IS RESTING IN BED. NO DISTRESS NOTED AT THIS TIME.
--- NOTE | 2019-05-25 16:22 | NUR ---
PT TURNED AND REPOSITIONED. PT YELLING, CALLS FOR HELP BUT UNABLE TO VERBALIZE WHY HE CALL FOR HELP. NOTED THAT PT STARTS TO YELL AROUND THIS TIME . PT HAD HAS SAME EPISODE YESTERDAY.
[2019-05-25 16:35] VITALS: BP_SYST 109
--- NOTE | 2019-05-25 17:22 | NUR ---
Dietitian Recommendations * Recommend continuing [facility], [facility] standard carb-60 gm diet (ONS Glucerna TID comes standard w/ meals; provides 660 kcal/day, 30 gm protein/day) * Encourage increase PO intakes LP, RD Please refer to Nutrition Assessment for details. Addendum: 05/25/19 at [address] Amended: Links added.
--- NOTE | 2019-05-25 18:58 | NUR ---
RN END OF SHIFT NOTE: PT IS CURRENTLY AWAKE IN BED YELLING. RISE AND FALL OF CHEST NOTED, NO DISTRESS AT THIS TIME. NO PAIN NOTED VIA CASTILLO VILLAGOMEZ SCALE. IV ACCESS INTACT. SAFETY PRECAUTIONS IN PLACE: BED LOCKED IN LOWEST POSITION, ALARM ON, CALL LIGHT WITHIN REACH, WILL ENDORSE CARE TO SENIOR MANAGER MERGERS & ACQUISITIONS NURSE.
[2019-05-25 19:00] VITALS: BP_SYST 143
--- NOTE | 2019-05-25 19:15 | NUR ---
change of shift.p.presents affect;restless.pt.,calling out for someone.pt,.repositioned.pt.presents room air;respiratory status; tachypnea. general status stable.iv access intact;patent.call light/telephone w/in reach of the pt.
--- NOTE | 2019-05-25 19:32 | NUR ---
CLOSING NOTES. PT HAS BEEN STABLE THE WHOLE SHIFT, NO FEVER, PT STARTED YELLING ON OR AROUND 1600. ENDORSED TO NIGHT RN TO INFORM DR ALBERT TO CALL PATIENTS DPOA.
[2019-05-25 20:00] VITALS: BP_SYST 143
--- NOTE | 2019-05-25 20:00 | NUR ---
pr.assessed.v/s assessed;values w/i n normal limits.pt.presents affect;restless;agitation;pt.calling out to a person. pt.assessed for cleanliness.pt.cleaned.pt.repositioned.to review emar;med-list to address;agitation;restlessness medication.general status stable.respiratory status stable@room air;02-sat%=96%.call light/telephone placed w/in reach of the pt.
--- NOTE | 2019-05-25 20:30 | NUR ---
i have assessed the blood glucose;value;116mg/dl.pt.presented aggressive affect;lisandro;samuel/chg,analyn;massimo assisted w/the pt. Addendum: 05/26/19 at 0752 by Hal Bowles RN liz the pt's dpoa telephoned and conveyed that 's to to telephone her in the am;05/26/19. the pt's affect status should remain docile,calm to remain at the pt's facility.
--- NOTE | 2019-05-25 21:00 | NUR ---
2100p medications administered.i have administered the tablets crushed mixture pudding.administered apple juice. pt.capable to consume po tablets w/out complications.i have administered restoril,ativan.pt.presented affect;restless agitation.
[2019-05-25] MEDS: LORazepam 1 MG TABLET PO PRN (21:39)
[2019-05-25] MEDS: ATORVASTATIN 10 MG TABLET PO SCH (21:39)
[2019-05-25] MEDS: ZOLPIDEM TARTRATE 5 MG TABLET PO PRN (21:39)
--- NOTE | 2019-05-25 22:00 | NUR ---
pt.assessed.pt.presents quiescent affect;calm somnolent.pt.assessed for cleanliness.pt.repositioned.general status stable. respiratory status stable;unlabored.call light/telephone placed w/in reach of the pt.
[2019-05-26] VITALS: BP_SYST 124
--- NOTE | 2019-05-26 | NUR ---
pt.assessed.v/s assessed:values w/in normal limits.pt ass for cleanliness.pt.repositioned.general status stable. respiratory status stable;unlabored.call light/telephone placed w/in reach of the pt.
--- NOTE | 2019-05-26 02:00 | NUR ---
pt.assessed pt.presents quiescent affect;calm,somnolent.pt.assessed for cleanliness.pt.repositioned. general status stable.respiratory status stable;un;labored call.light/telephone placed w/in reach of the pt.
--- NOTE | 2019-05-26 04:00 | NUR ---
pt.assessed.pt.presents quiescent affect;calm,somnolent.pt.assessed for cleanliness.pt.repositioned. general status stable.respiratory status stable;unlabored.call light/telephone placed w/in the reach of the pt.
--- NOTE | 2019-05-26 06:30 | NUR ---
pt.assessed pt.presets qiescet affct;calm somnolewnt.i haevased th blood gluyciose;value:109mg/dl.ptsed for cl;eanlines. pt.reposisiotned.genral stsyus stsble.respirat[ry status stable;donta;bored.call light/telephoen palced w/in rech of th pt/. is prset ases the pt.i have conveyed [facility] rerqesuts per dianna:the pt' dp[opa re;pt affect ststus.im have provide w/the telephone#$f the dpoa;liz.
--- NOTE | 2019-05-26 07:20 | NUR ---
INITIAL NOTE BEDSIDE SBAR REPORT RECEIVED BY CERTIFIED BENCH JEWELER TECHNICIAN RN. PT RESTING, NO ACUTE DISTRESS NOTED, BREATHING EVEN AND UNLABORED. ISOLATION PRECAUTIONS IN PLACE. CALL LIGHT WITHIN REACH, BED IN LOW AND LOCKED POSITION WITH BED ALARM ON.
[2019-05-26 08:00] VITALS: BP_SYST 110
[2019-05-26] MEDS: MUPIROCIN 2% TOPICAL OINTMENT 22 GM NS SCH ×2 (09:05→21:49)
[2019-05-26] MEDS: FAMOTIDINE 20 MG TABLET PO SCH (09:06)
[2019-05-26] MEDS: PREDNISONE 5 MG TABLET PO SCH (09:06)
[2019-05-26] MEDS: SERTRALINE HCL 50 MG TABLET PO SCH (09:06)
[2019-05-26] MEDS: clonazePAM 0.5 MG TABLET PO SCH ×3 (09:06→21:47)
[2019-05-26] MEDS: DIGOXIN 0.25 MG TABLET PO SCH (09:07)
[2019-05-26] MEDS: AMITRIPTYLINE HCL 25 MG TABLET (ELAVIL) PO SCH ×2 (09:07→21:47)
[2019-05-26] MEDS: QUEtiapine FUMARATE 100 MG TABLET PO SCH ×4 (09:07→21:48)
--- NOTE | 2019-05-26 09:20 | NUR ---
RN ROUNDS ADMINISTERED MORNING MEDICATIONS, PT COOPERATIVE, CRUSHED MEDICATION AND GAVE WITH WATER, PT TOLERATED WELL. REPOSITIONED FOR COMFORT.
--- NOTE | 2019-05-26 11:25 | NUR ---
RN ROUNDS PT INCONTINENT OF BOWEL AND BLADDER, CHANGED PATIENT, TOLERATED WELL. REPOSITIONED FOR COMFORT.
[2019-05-26] MEDS: INSULIN REGULAR, HUMAN 100 UNITS/ML, 10 ML VIAL (humuLIN R) SUBCUT PRN (11:39)
[2019-05-26 12:00] VITALS: BP_SYST 122
[2019-05-26] MEDS ORDERED: FLU VACC TS2019(65UP)/MF59C/PF 45 MCG/0.5 ML SYRINGE I.M. PRN (13:00)
--- NOTE | 2019-05-26 13:30 | NUR ---
RN ROUNDS PT RESTING, NO ACUTE DISTRESS NOTED, BREATHING EVEN AND UNLABORED.
--- NOTE | 2019-05-26 15:30 | NUR ---
RN ROUNDS PT INCONTINENT OF URINE, CHANGED PATIENT, PATIENT TOLERATED WELL.
[2019-05-26 16:00] VITALS: BP_SYST 143
--- NOTE | 2019-05-26 17:30 | NUR ---
RN ROUND PT RESTING IN BED, NO ACUTE DISTRESS NOTED, BREATHING EVEN AND UNLABORED.
[2019-05-26] MEDS: FLU VACC TS2019(65UP)/MF59C/PF 45 MCG/0.5 ML SYRINGE I.M. PRN (17:48)
--- NOTE | 2019-05-26 19:25 | NUR ---
CLOSING NOTE BEDSIDE SBAR REPORT GIVEN TO WATER RESOURCE CONSULTANT RN. PT RESTING, NO ACUTE DISTRESS NOTED, BREATHING EVEN AND UNLABORED. IV SALINE LOCK. CALL LIGHT WITHIN REACH, BED IN LOW AND LOCKED POSITION WITH BED ALARM ON. ISOLATION PRECAUTIONS IN PLACE.
--- NOTE | 2019-05-26 19:30 | NUR ---
Opening notes Received report. Patient resting in bed. No signs of distress noted. Breathing even and unlabored. IV patent and intact, no signs of infiltration noted. Patient updated on plan of care. Patient verbalized understanding. Patient speech is garbled. No needs at this time. Call light with the patient. Safety precautions in place.
--- NOTE | 2019-05-26 21:45 | NUR ---
Medications given with apple juice. Educated the patient the action and side effects of medications. Patient verbalized understanding and tolerated well. No signs of allergic reaction noted. No other needs at this time. Call light with the patient. Safety precautions in place.
[2019-05-26] MEDS: ATORVASTATIN 10 MG TABLET PO SCH (21:47)
[2019-05-26 21:52] VITALS: BP_SYST 147
--- NOTE | 2019-05-27 | NUR ---
Hygiene care provided. No signs of distress noted. Breathing even and unlabored. Patient tolerated well. Call light with the patient. Safety precautions in place.
--- NOTE | 2019-05-27 02:30 | NUR ---
Sleeping No signs of distress noted. Breathing even and unlabored. Call light with the patient. Safety precautions in place.
--- NOTE | 2019-05-27 05:04 | NUR ---
Hygiene care Provided. No signs of distress noted. Breathing even and unlabored. Patient tolerated well. Call light with the patient. Safety precautions in place.
--- NOTE | 2019-05-27 06:43 | NUR ---
Closing notes Patient is resting comfortably in bed. Accucheck 86. Encouraged patient to eat breakfast. Patient verbalized understanding. Provided patient with juice and water at this time. Patient takes little sips. IV patent and intact, no signs of infiltration noted. No agitation noted throughout shift, patient has been compliant. All needs met throughout the shift. Call light with the patient. Safety precautions in place. Will endorse care to dy shift RN.
--- NOTE | 2019-05-27 08:00 | NUR ---
opening note,s received pt in bed is sleeping, arousable to voice and touch, no c/o of pain, vitals wnl. no fever. safety preacution in place. side rail padded. call light in reach , bed in low position. will cont to monitor.
[2019-05-27 08:09] VITALS: BP_SYST 120
[2019-05-27 08:43] VITALS: BP_SYST 120
[2019-05-27] MEDS: QUEtiapine FUMARATE 100 MG TABLET PO SCH ×2 (09:49→12:43)
[2019-05-27] MEDS: MUPIROCIN 2% TOPICAL OINTMENT 22 GM NS SCH (09:49)
[2019-05-27] MEDS: DIGOXIN 0.25 MG TABLET PO SCH (09:53)
[2019-05-27] MEDS: FAMOTIDINE 20 MG TABLET PO SCH (09:53)
[2019-05-27] MEDS: SERTRALINE HCL 50 MG TABLET PO SCH (09:54)
[2019-05-27] MEDS: clonazePAM 0.5 MG TABLET PO SCH ×2 (09:54→15:00)
[2019-05-27] MEDS: AMITRIPTYLINE HCL 25 MG TABLET (ELAVIL) PO SCH (09:55)
[2019-05-27] MEDS: PREDNISONE 5 MG TABLET PO SCH (09:55)
--- NOTE | 2019-05-27 10:00 | NUR ---
pt in bed, pt appears drowsy but arousable, no s/s pain, no sob. will cont to monitor.
--- NOTE | 2019-05-27 10:35 | NUR ---
DC Planning:pending: verification from [facility] and dr. Johnson clearance for discharge. S/w dr. Hall this am, he recommended to send pt to [facility] instead of send pt back [facility]. He mentioned that the [facility] does not want pt going back to [facility]. Cm to get the confirmation from [facility]. Addendum: 05/27/19 at 1106 by Olivia Whyte RN S/W the pt 's POA ,Lovely Tone ph# [phone] for dc pt back to [facility] vs. [facility]. Lovely wants to visit the facility first and will give her answer this pm or tomorrow am. She can only visit [facility] after her work in the evening. Lovely authorized to send the pt's info to [facility] for admission screening. -- lucas Cuba made aware and to process the order.
--- NOTE | 2019-05-27 11:15 | NUR ---
Discharge Planning: DCP faxed pt referral to [facility] (f [phone] p [phone]) DCP to follow up Addendum: 05/27/19 at 1244 by Rosa Elena Vieyra DP DCP followed up with [facility] (f [phone] p [phone]) Geovani Whitmore referral is being reviewed. Addendum: 05/27/19 at 1423 by Rosa Elena Vieyra DP [facility] (f [phone] p [phone]) 17A, [facility] ([phone]) 4:00pm P/U. Nurse made aware patient packet taken to nurse station.
--- NOTE | 2019-05-27 12:00 | NUR ---
pt in bed, no s/s of pain, no sob. breathing even and unlabored will cont to monitor. , call light in reach
[2019-05-27 12:30] VITALS: BP_SYST 140
--- NOTE | 2019-05-27 14:13 | NUR ---
DC PLANNING: RECEIVE A CALL FROM EUGENE ESTRADA (SHAWN) @ , WHO STATED SHE HAD VISITED [facility] AND LIKE THE FACILITY. EUGENE AGREED AND APPROVED FOR THE PATIENT TO BE DISCHARGED TO [facility] TODAY.
--- NOTE | 2019-05-27 14:14 | NUR ---
this rn informed by charge authorizer that pt will be picked up at 4pm. presvious dc order says dc when bed is available.
--- NOTE | 2019-05-27 15:51 | NUR ---
GAVE REPORT TO NURSE GOLDSTEIN OF [facility] .
--- NOTE | 2019-05-27 16:03 | NUR ---
DP[OA EUGENE MADE AWARE THAT PT IS GOING NOW TO [place], SHE TOLD ME THAT SHE WENT TO [place] SHE IS OK WITH THE TRANSFER/ SHE ASK HOW PT IS DOING NOW, TOLD HER THAT PT IS DOING OKAY, VITALS ARE FINE, NO FEVER, PT IS A LITTLE DROWSY BUT AROUSABLE TO VOICE AND TOUCH AND FOLLOWS COMMANDS . EUGENE STATED THAT SHE RATHER HAVE THE PT LIKE THAT INSTEAD OF AGITATED. AMBULANCE HERE TO TRACTOR SWEEPER DRIVER PT.
--- NOTE | 2019-05-27 16:10 | NUR ---
DISCHARGE Patient given medication reconciliation form and D/C instructions. Exit Care provided. Patient unable to verbalized understanding. MD discussed with patient the results and treatment provided. PATIENT is non- Ambulatory , discharged to [facility]. Patient in stable condition, ID band removed. IV catheter removed, intact and dressing applied, no active bleeding. Rx of given. Patient educated on pain management. All belongings sent with patient.
--- NOTE | 2019-05-27 16:55 | NUR ---
Nutrition F/U Admitting Diagnosis Encephalopathy and behavioral problem RD reviewed pts current ERM including diet Hx, physicians notes, nursing notes, pertinent labs/meds/procedures, care trends, and care activity. Medical History Comment: PMH: CVA per physician notes Pt also found w/ psychosis per physician notes Subjective Information Pt seen resting in bed, seemingly disoriented but able to answer yes or no questions. Pt average PO intake increased to 58% x 6 meals. Bed scale wt taken: 167.4#. RN reports planning discharge. Stephen scale improved to 16, anterior R knee scab and lower sacrum denuded per EMR. Current Diet Order/Nutrition Support Pureed, CCHO standard carb-60 gm x3 days Pertinent Labs BG 101 H (no new lab 05/22), POC BG 86 WNL (improved) Estimated Energy Expenditure (kcals/day) 9623-5738 kcal/day (MSJ x 1-1.2 CBW for maintenance) Estimated Protein Required (g/day) 42-50 gm/day (1-1.2 gm/kg Adj IBW for maintenance) Estimated Fluid Required (l/day) 2.3-2.7 L/day (30-35 ml/kg CBW for maintenance) Problem/Etiology/Signs/Symptoms (MODIFED) Suboptimal PO intakes related to possible lack of appetite associated w/ cognitive limitation as evidenced by PO intake record and inability to meet estimated nutritional needs fo maintenance. (*ongoing) Expected Outcomes/Goals - Monitor appetite and PO intakes w/ goal of pt meeting at least 75% of estimated nutritional needs, labs trending WNL, normal GI function, and skin integrity/wt maintenance Dietitian Recommendations * Recommend continuing pureed, CCHO standard carb-60 gm diet (ONS Glucerna TID comes standard w/ meals; provides 660 kcal/day, 30 gm protein/day) * Encourage increase PO intakes Follow Up Moderate Risk: F/U in 3-5 days Signed: 05/27/19 at 1656 by Juju SWAN <Co-Signature Required> Co-Signed: 05/27/19 at [address]
== END 2019-05-27 16:19 | DRG 56 ==
LOC: SED 20:47 → SMU 23:59
PROVIDERS: ADMIT Internal Medicine; ATTEND Internal Medicine
DX: G91.2 (Idiopathic) normal pressure hydrocephalus (principal); G93.41 Metabolic encephalopathy; E43 Unspecified severe protein-calorie malnutrition; F33.3 Major depressive disorder, recurrent, severe with psychotic symptoms; G51.0 Bell's palsy; E78.00 Pure hypercholesterolemia, unspecified; F03.90 Unspecified dementia, unspecified severity, without behavioral disturbance, psychotic disturbance, mood disturbance, and anxiety; I10 Essential (primary) hypertension; K21.9 Gastro-esophageal reflux disease without esophagitis; Z79.899 Other long term (current) drug therapy; Z86.73 Personal history of transient ischemic attack (TIA), and cerebral infarction without residual deficits
CPT/HCPCS: 36415; 70450-TC; 71045; 80048; 80053; 80162-TC; 82962; 83036; 84443-TC; 84484; 85025; 85610-TC; 85730-TC; 87081; 93005; 95816; 96360; 99285; J1200; J1630; J1815; J2060; J7030; J7512; Q0163

== ENCOUNTER 2019-07-13 16:48 | Inpatient (IN) | payer OTHER, MEDICAID ==
[~2019-07-13] VITALS: Ht 172.7 cm; Wt 74.9 kg
[~2019-07-13 16:48] MED LIST: ACET-2165 PO; ACET-2634 PO; AMIT25TA9 PO; CALC500T87 PO; CARB15DR93 OT; CAT.1 PO; DIGO250T78 PO; FAMO20TA8 PO; HYDR-4272 PO; IPRA3AMP9 INH; LEVE500T9 PO; LIP10 PO; LORA10TA7 PO; MECL-110 PO; POLY15DR31 OP; PRED5TAB PO; SER100 PO; SERT50TA PO; SSREG SUBCUT; ZOLP5TAB2 PO
[2019-07-13 16:50] VITALS: BP_SYST 131
[2019-07-13 18:04] LABS: BASOPHILS # (AUTO) 0.1 K/uL (0.0-0.2); BASOPHILS % (AUTO) 0.4 % (0.0-2.0); EOSINOPHILS # (AUTO) 0.1 K/uL (0.0-0.4); EOSINOPHILS % (AUTO) 0.4 % (0.0-4.0); LYMPHOCYTES # (AUTO) 1.4 K/uL (1.0-5.5); LYMPHOCYTES % (AUTO) 10.4 % (20.5-51.5); MEAN CORPUSCULAR HEMOGLOBIN 28 pg (27-31); MEAN CORPUSCULAR HGB CONC 33 % (32-36); MEAN CORPUSCULAR VOLUME 87 fL (79.0-98.0); MONOCYTES # (AUTO) 0.9 K/uL (0.0-1.0); MONOCYTES % (AUTO) 6.3 % (1.7-9.3); NEUTROPHILS # (AUTO) 11.4 K/uL (1.8-7.7); NEUTROPHILS % (AUTO) 82.5 % (40.0-70.0); PLATELET COUNT (AUTO) 228 K/uL (130-430); RED CELL DISTRIBUTION WIDTH 15.3 % (9.0-15.0); WHITE BLOOD COUNT (AUTO) 13.9 K/uL (4.8-10.8)
[2019-07-13 18:08] LABS: CALCIUM 8.7 mg/dL (8.4-11.0); CREATININE 0.73 mg/dL (0.55-1.30); POTASSIUM 3.7 mmol/L (3.5-5.1)
[2019-07-13 18:14] LABS: ALBUMIN 2.9 g/dL (3.4-4.8); TOTAL BILIRUBIN 0.6 mg/dL (0.0-1.0)
--- NOTE | 2019-07-13 18:55 | NUR ---
Patient to ER bed 6 to gown for evaluation. Side rails up.
[2019-07-13] MEDS ORDERED: NACL 0.9% 1,000 ML IV ONE (19:00)
[2019-07-13] MEDS ORDERED: LOPERAMIDE HCL 2 MG CAPSULE PO ONE (19:00)
--- NOTE | 2019-07-13 19:32 | NUR ---
ASSUMED CARE. RECEIVED. ALERT,ORIENTED. AFEBRILE, NOT IN ACUTE DISTRESS. NO PAIN OR DISCOMFORT NOTED. SENT HERE FROM SNF FOR DIARRHEA,INCREASING ANXIETY. BLOOD DRAWN EARLIER BY LAB. GAUGE 20 IV LINE ESTABLISHED TO THE LEFT HAND. NS 1 LITER BOLUS AND IMMODIUM 4 MG PO GIVEN ORDERED.
--- NOTE | 2019-07-13 20:00 | NUR ---
INFLUENZA SWAB AND STOOL SAMPLE FOR C.DIFF TOXIN COLLECTED AND SENT TO THE LAB.
--- NOTE | 2019-07-13 20:10 | NUR ---
IN AND OUT CATHETERIZATION ATTEMPTED PER 'S VERBAL ORDER BUT (+) STRONG RESISTANCE AND PT.COMPLAINS OF SEVERE PAIN. MADE AWARE. SAID OK NOT TO DO IN AND OUT.
--- NOTE | 2019-07-13 21:28 | NUR ---
URINE DIPSTICK DONE. REPORT NOTED BY .
[2019-07-13] MEDS ORDERED: LEVOFLOXACIN 500 MG/D5W 100 ML IV ONE (21:30)
--- NOTE | 2019-07-13 21:37 | NUR ---
LEVAQUIN 500 MG IVPB GIVEN ORDERED.
--- NOTE | 2019-07-13 21:42 | NUR ---
ADMITTED TO [facility] IN-PATIENT STATUS FOR ACUTE URINARY TRACT INFECTION,R/O C.DIFF COLITIS UNDER THE SERVICE OF . ADMITTING ORDERS GIVEN.
[2019-07-13] MEDS ORDERED: PIPERACILLIN/TAZO 3.375 GM in NS 50 ML IV SCH (22:00)
--- NOTE | 2019-07-13 22:37 | NUR ---
LEVAQUIN 500 MG IVPB STARTED @ 2136 BY RN AND COMPLETED @2236
--- NOTE | 2019-07-13 22:40 | NUR ---
CALLED [facility] FLOOR FOR ROOM. SPOKE WITH MARI. SHE WILL CALL BACK WHEN ROOM HAS BEEN ASSIGNED.
[2019-07-13 22:44] LABS: BILIRUBIN,URINE 2+ (NEGATIVE); BLOOD, URINE 3+ (NEGATIVE); CLARITY/URINE CLOUDY (CLEAR); COLOR,URINE YELLOW (YELLOW); GLUCOSE,URINE NEGATIVE (NEGATIVE); KETONES,URINE 1+ (NEGATIVE); LEUKOCYTE ESTERASE ,URINE 2+ (NEGATIVE); NITRITE, URINE NEGATIVE (NEGATIVE); PROTEIN URINE TRACE (NEGATIVE)
--- NOTE | 2019-07-13 22:56 | NUR ---
PT. RESTLESS AND AGITATED. ER-MD MADE AWARE. ATIVAN 1 MG IVP GIVEN ORDERED.
[2019-07-13] MEDS ORDERED: LORazepam 2 MG/ML VIAL IVP ONE (23:00)
[2019-07-13 23:08] LABS: BACTERIA,URINE MANY /HPF (None Seen); RBC,URINE 20-50 /HPF (0-3); WBC,URINE 20-50 /HPF (0-3)
--- NOTE | 2019-07-13 23:10 | NUR ---
CALLED [facility] AGAIN TO FOLLOW-UP ON THE ROOM. MARI SAID RACHEL BLANTON IS WORKING ON IT.
--- NOTE | 2019-07-13 23:13 | NUR ---
Per lab not enough urine for testing. Will need to reorder for exam to be completed.
--- NOTE | 2019-07-13 23:30 | NUR ---
REPORT GIVEN TO SERA STEELE. PT GOING TO ROOM 103-A. PT.REMAINS STABLE AND PAIN FREE.
[2019-07-13] MEDS ORDERED: VANCOMYCIN HCL 1,000 MG in NS 250 ML IV SCH (23:45)
[2019-07-14] VITALS (8 sets, daily range): BP systolic 122–146
--- NOTE | 2019-07-14 01:06 | NUR ---
TRANSFERRED TO FLOOR VIA [facility]. TRANSFER UNEVENTFUL.
--- NOTE | 2019-07-14 01:12 | NUR ---
ADMISSION NOTE Received patient from ER via feroz, received report from Anselmo STEELE. Patient admitted with diagnosis of Acute UTI/rule out CDiff. Patient oriented to hospital routine, call light, toileting and safety-patient verbalized understanding.
[2019-07-14] MEDS: D5/0.45 NS 1,000 ML IV SCH ×3 (01:34→18:23)
[2019-07-14] MEDS ORDERED: metroNIDAZOLE 500 mg/NS 100 ML IV SCH (03:00)
--- NOTE | 2019-07-14 03:35 | NUR ---
RN Rounds Patient resting in bed, eyes closed, tolerating room air, no signs of acute distress, IV fluids infusing per MD order, patient tolerating well, bed alarm on, room close to nursing station, bed locked and in lowest position, safety and fall precautions in place, call light with patient, will continue to monitor.
[2019-07-14] MEDS ORDERED: metroNIDAZOLE 500 mg/NS 100 ML IV ONE (03:53)
[2019-07-14] MEDS ORDERED: VANCOMYCIN HCL 1000 MG/VIAL IV ONE (03:53)
--- NOTE | 2019-07-14 06:49 | NUR ---
Nutrition Update Stephen Scale 17 noted. Pt admitted for Acute UTI Diet: Pureed BMI: 24.5 kg/m2 RD to follow per nutrition care standards.
--- NOTE | 2019-07-14 06:56 | NUR ---
Closing Note Patient resting in bed, eyes closed, tolerating room air, no signs of acute distress, IV fluids infusing per MD order, patient tolerating well, bed alarm on, room close to nursing station, three side rails up, bed locked and in lowest position, safety, fall and aspiration precautions in place, isolation precautions in place, call light with patient, all needs met, will endorse care to dayshift RN.
--- NOTE | 2019-07-14 07:25 | NUR ---
Opening Notes Patient received alert, awake and verbally responsive, respiration even and unlabored. Denies any pain or discomfort at this time. History of CVA facial drooping to left side and slight slurring of speech. IVF infusing well. Discussed plan of care and usage of call ligh, patient verbalized understanding. Call light within the reach. Will continue to monitor.
--- NOTE | 2019-07-14 07:27 | NUR ---
ID consult called: for Dr. Yuniel Zuniga, regarding acute UTI rule out c diff, ordered by dr. Hall, spoke with Anahi.
--- NOTE | 2019-07-14 07:40 | NUR ---
CLOSING NOTES Patient is resting, no signs of acute respiratory distress observed. IVF running, dressing c/d/i. HOB elevated. Call light within reach, bed alarm on, and bed at lowest position. All needs met throughout shift. Will endorse care to oncoming shift. Addendum: 07/15/19 at 0741 by Tanja Glass RN WRONG TIME, PLEASE DISREGARD
--- NOTE | 2019-07-14 09:30 | NUR ---
Rn ROUNDS Patient remain to be alert, awake and verbally responsive. Denies any pain or discomfort at this time. Able to verbalize needs and concerns. Call light within the reach.
[2019-07-14] MEDS ORDERED: cloNIDine HCL 0.1 MG TABLET PO PRN (10:45)
[2019-07-14] MEDS ORDERED: LORATADINE 10 MG TABLET PO PRN (10:45)
[2019-07-14] MEDS ORDERED: ZOLPIDEM TARTRATE 5 MG TABLET PO PRN (10:45)
[2019-07-14] MEDS ORDERED: ACETAMINOPHEN 325 MG TABLET PO PRN ×2 (10:45)
[2019-07-14] MEDS ORDERED: MECLIZINE HCL 25 MG TABLET (ANITVERT) PO PRN (10:45)
[2019-07-14] MEDS ORDERED: CALCIUM CARBONATE 500 MG/ TAB.CHEW PO PRN (10:45)
[2019-07-14] MEDS ORDERED: PEG 400/HYPROMELLOSE/GLYCERIN 15 ML DROPS OP PRN (10:45)
[2019-07-14] MEDS ORDERED: ACETAMINOPHEN 500 MG TABLET PO PRN (10:45)
[2019-07-14] MEDS ORDERED: IPRATROPIUM/ALBUTEROL SULFATE 3 ML AMPUL.NEB (DUONEB) INH PRN (10:45)
--- NOTE | 2019-07-14 10:50 | NUR ---
Spoke with Dr. Hall via phone call for med rec Called and spoke with MD regarding patient's medicine reconciliation per MD to continue all home medications, telephone order read back, verified, noted and carried out.
--- NOTE | 2019-07-14 11:30 | NUR ---
RN ROUNDS Patient denies any pain or discomfort at this time. Noted with pasty BM, no loose stool. Denies any abdominal discomfort. History of MRSA and C-diff, continued contact isolation. Call light within the reach.
[2019-07-14] MEDS ORDERED: DIGOXIN 0.25 MG TABLET PO ONE (11:49)
[2019-07-14] MEDS ORDERED: PREDNISONE 5 MG TABLET PO ONE (11:50)
[2019-07-14] MEDS ORDERED: FAMOTIDINE 20 MG TABLET PO ONE (11:50)
[2019-07-14] MEDS ORDERED: QUEtiapine FUMARATE 100 MG TABLET PO ONE (11:52)
[2019-07-14] MEDS ORDERED: SERTRALINE HCL 50 MG TABLET PO ONE (11:53)
[2019-07-14] MEDS ORDERED: AMITRIPTYLINE HCL 25 MG TABLET (ELAVIL) PO ONE (12:00)
[2019-07-14] MEDS ORDERED: levETIRAcetam 500 MG TABLET PO ONE (12:00)
--- NOTE | 2019-07-14 13:45 | NUR ---
RN ROUNDS Patient resting well, respiration even and unlabored. No episodes of anxiety. Call light within the reach.
[2019-07-14] MEDS: IPRATROPIUM/ALBUTEROL SULFATE 3 ML AMPUL.NEB (DUONEB) INH SCH ×2 (14:02→20:15)
[2019-07-14] MEDS: metroNIDAZOLE 500 mg/NS 100 ML IV SCH ×2 (14:10→22:31)
--- NOTE | 2019-07-14 15:30 | NUR ---
RN ROUNDS Patient remain to be alert, awake and verbally responsive. Denies any pain or discomfort. Respiration even and unlabored. Call light within the reach.
--- NOTE | 2019-07-14 15:42 | NUR ---
Psychiatry consult called: for Dr. Jimenez, regarding depression and anxiety, ordered by Dr. Hall, spoke with Vishnu.
--- NOTE | 2019-07-14 17:45 | NUR ---
RN ROUNDS Patient resting well, denies any pain or discomfort. No episode of diarrhea at this time, Denies any abdominal discomfort. Call light within the reach.
--- NOTE | 2019-07-14 18:53 | NUR ---
Closing Notes Patient remain to be alert, awake and verbally responsive. Respiration even and unlabored. Denies any pain or discomfort at this time. Patient no episode of diarrhea, active bowel sounds on all quadrants, no episode of anxiety at this time. IVF infusing well. Fall precaution observed, bed at lowest position, bed alarm on. Call light within the reach. Will endorse to the next shift.
--- NOTE | 2019-07-14 19:30 | NUR ---
OPENING NOTES Patient is resting, no signs of acute respiratory distress observed. IVF running, dressing c/d/i. HOB elevated. Call light within reach, bed alarm on, and bed at lowest position. Will continue to monitor.
--- NOTE | 2019-07-14 21:00 | NUR ---
DR. WOMACK DOING ROUNDS.
[2019-07-14] MEDS: levETIRAcetam 500 MG TABLET PO SCH (22:30)
[2019-07-14] MEDS: QUEtiapine FUMARATE 100 MG TABLET PO SCH (22:30)
[2019-07-14] MEDS: ATORVASTATIN 10 MG TABLET PO SCH (22:30)
[2019-07-14] MEDS: AMITRIPTYLINE HCL 25 MG TABLET (ELAVIL) PO SCH (22:30)
[2019-07-14] MEDS ORDERED: VANCOMYCIN HCL 1,000 MG in NS 250 ML IV SCH (23:00)
[2019-07-15] MEDS: IPRATROPIUM/ALBUTEROL SULFATE 3 ML AMPUL.NEB (DUONEB) INH SCH ×4 (00:29→20:22)
--- NOTE | 2019-07-15 03:10 | NUR ---
DR. KESSLER AT BEDSIDE, NEW ORDERS WILL BE PUT IN BY DR. KESSLER.
[2019-07-15] MEDS ORDERED: LEVOFLOXACIN 500 MG/D5W 100 ML IV SCH (03:30)
[2019-07-15] MEDS ORDERED: LEVOFLOXACIN 500 MG/D5W 100 ML IV ONE (05:55)
[2019-07-15] MEDS: metroNIDAZOLE 500 mg/NS 100 ML IV SCH ×3 (06:18→22:19)
--- NOTE | 2019-07-15 07:25 | NUR ---
Opening Notes Patient received asleep but easily awaken with verbal and tactile stimuli, denies any pain or discomfort at this time. Respiration even and unlabored. IVF infusing well. Fall precaution observed, bed alarm on and bed at lowest position. Call light within the reach. Will continue to monitor.
--- NOTE | 2019-07-15 07:30 | NUR ---
CLOSING NOTES Patient is resting, no signs of acute respiratory distress observed. IVF running, dressing c/d/i. HOB elevated. Call light within reach, bed alarm on, and bed at lowest position. All needs met throughout shift. Will endorse care to oncoming shift.
[2019-07-15 08:00] VITALS: BP_SYST 147
[2019-07-15] MEDS: AMITRIPTYLINE HCL 25 MG TABLET (ELAVIL) PO SCH ×2 (09:23→22:20)
[2019-07-15] MEDS: LEVOFLOXACIN 500 MG/D5W 100 ML IV SCH (09:23)
[2019-07-15] MEDS: PREDNISONE 5 MG TABLET PO SCH (09:23)
[2019-07-15] MEDS: levETIRAcetam 500 MG TABLET PO SCH ×2 (09:23→22:19)
[2019-07-15] MEDS: FAMOTIDINE 20 MG TABLET PO SCH (09:23)
[2019-07-15] MEDS: DIGOXIN 0.25 MG TABLET PO SCH (09:24)
[2019-07-15] MEDS: QUEtiapine FUMARATE 100 MG TABLET PO SCH ×2 (09:24→22:19)
[2019-07-15] MEDS: SERTRALINE HCL 50 MG TABLET PO SCH (09:24)
--- NOTE | 2019-07-15 09:35 | NUR ---
MRSA nares positive Received a call from lab, notifying patient is positive for MRSA nares. Will notify ID
--- NOTE | 2019-07-15 10:15 | NUR ---
Dr. Zuniga Rounds Seen and examined by MD, notified patient positive for MRSA nares with new order made, will follow-up.
[2019-07-15 11:17] VITALS: BP_SYST 140
--- NOTE | 2019-07-15 11:50 | NUR ---
Dr. Hall Rounds Seen and examined by MD, will follow-up for any new orders.
[2019-07-15] MEDS ORDERED: INSULIN REGULAR, HUMAN 100 UNITS/ML, 10 ML VIAL (humuLIN R) SUBCUT PRN (12:00)
[2019-07-15] MEDS ORDERED: HYDROcodone/ACETAMIN 5-325 MG TAB (NORCO/ VICODIN) PO PRN (12:00)
--- NOTE | 2019-07-15 13:01 | NUR ---
RN ROUNDS Patient resting well, denies any pain or discomfort. Remain to be alert, awake and verbally responsive. Call light within the reach.
--- NOTE | 2019-07-15 14:15 | NUR ---
Dietitian Recommendations * Recommend pureed, CCHO diet w/ Hugo BID (ONS [place] comes standard w/ this diet; provides 660 kcal/day, 30 gm protein/day; Hugo BID provides 180 kcal/day, 5 gm protein/day) LP, RD Please refer to Nutrition Assessment for details. Addendum: 07/15/19 at [address] Amended: Links added.
[2019-07-15] MEDS: D5/0.45 NS 1,000 ML IV SCH (14:50)
[2019-07-15 15:10] VITALS: BP_SYST 144
--- NOTE | 2019-07-15 15:27 | NUR ---
RN ROUNDS Contact isolation observed, patient no moaning or grimacing noted at this time. Able to verbalize needs and concerns. Call light within the reach.
[2019-07-15] MEDS: MUPIROCIN 2% TOPICAL OINTMENT 22 GM NS SCH ×2 (15:51→22:19)
[2019-07-15] MEDS ORDERED: DEXTROSE 50%-WATER 50 ML DISP.SYRIN IVP PRN (16:00)
[2019-07-15] MEDS ORDERED: GLUCOSE 15 GM GEL (in 37.5 GM TUBE) PO PRN (16:00)
[2019-07-15] MEDS ORDERED: D5W 1,000 ML IV PRN (16:00)
--- NOTE | 2019-07-15 17:10 | NUR ---
RN ROUNDS Patient remain to be alert, awake and verbally responsive. Denies any pain or discomfort. Respiration even and unlabored. Call light within the reach.
--- NOTE | 2019-07-15 19:10 | NUR ---
Closing Notes Patient currently lying comfortably in his bed with respiration even and unlabored. Denies any pain or discomfort at this time. Able to verbalize needs and concerns. Contact isolation observed. Provided rest and comfort. IVF infusing well. Call light within the reach. Will endorse to the next shift.
--- NOTE | 2019-07-15 19:30 | NUR ---
Opening notes Received report. Patient is sitting in bed, eating dinner. No signs of distress noted. Breathing even and unlabored. IV patent and intact, infusing fluids. No needs at this time. Call light with the patient. Safety precautions in place.
[2019-07-15 20:00] VITALS: BP_SYST 141
[2019-07-15 20:14] LABS: BASOPHILS % (AUTO) 0.5 % (0.0-2.0); EOSINOPHILS # (AUTO) 0.1 K/uL (0.0-0.4); EOSINOPHILS % (AUTO) 0.8 % (0.0-4.0); HEMATOCRIT 41.2 % (36-54); HEMOGLOBIN 13.4 g/dL (14.0-18.0); LYMPHOCYTES # (AUTO) 0.7 K/uL (1.0-5.5); LYMPHOCYTES % (AUTO) 9.6 % (20.5-51.5); MEAN CORPUSCULAR HEMOGLOBIN 29 pg (27-31); MEAN CORPUSCULAR HGB CONC 33 % (32-36); MEAN CORPUSCULAR VOLUME 88 fL (79.0-98.0); MONOCYTES # (AUTO) 0.3 K/uL (0.0-1.0); MONOCYTES % (AUTO) 3.6 % (1.7-9.3); NEUTROPHILS # (AUTO) 6.6 K/uL (1.8-7.7); NEUTROPHILS % (AUTO) 85.5 % (40.0-70.0); PLATELET COUNT (AUTO) 186 K/uL (130-430); RED BLOOD CELL COUNT(AUTO) 4.66 MIL/uL (4.2-6.2); RED CELL DISTRIBUTION WIDTH 15.3 % (9.0-15.0); WHITE BLOOD COUNT (AUTO) 7.7 K/uL (4.8-10.8)
[2019-07-15 20:30] LABS: CALCIUM 7.3 mg/dL (8.4-11.0); CREATININE 0.74 mg/dL (0.55-1.30); POTASSIUM 3.3 mmol/L (3.5-5.1)
--- NOTE | 2019-07-15 21:00 | NUR ---
Resting Patient is resting in bed, patient is confused, but easily reoriented. No needs at this time. No signs of distress noted. Breathing even and unlabored. Call light with the patient. Safety precautions in place.
[2019-07-15] MEDS: ATORVASTATIN 10 MG TABLET PO SCH (22:19)
[2019-07-15] MEDS: INSULIN REGULAR, HUMAN 100 UNITS/ML, 10 ML VIAL (humuLIN R) SUBCUT PRN (22:24)
--- NOTE | 2019-07-15 22:25 | NUR ---
Medications given. Educated the action and side effects of medications. Patient verbalized understanding and tolerated well. Accucheck 157. Insulin given per sliding scale. Call light with the patient. Safety precautions in place.
--- NOTE | 2019-07-16 | NUR ---
Sleeping No signs of distress noted. Breathing even and unlabored. IVF infusing well. Call light with the patient. Safety precautions in place.
[2019-07-16] MEDS: IPRATROPIUM/ALBUTEROL SULFATE 3 ML AMPUL.NEB (DUONEB) INH SCH ×4 (01:10→19:59)
[2019-07-16 01:51] VITALS: BP_SYST 139
--- NOTE | 2019-07-16 01:59 | NUR ---
Sleeping No signs of distress noted. Breathing is even and unlabored. IVF infusing well. Call light with the patient. Safety precautions in place.
--- NOTE | 2019-07-16 04:00 | NUR ---
Hygiene care provided. Patient tolerated well. Patient able to help turn. No diarrhea noted. Call light with the patient. Safety precautions in place.
[2019-07-16] MEDS: D5/0.45 NS 1,000 ML IV SCH ×2 (06:27→17:38)
[2019-07-16] MEDS: metroNIDAZOLE 500 mg/NS 100 ML IV SCH ×3 (06:27→21:26)
--- NOTE | 2019-07-16 06:50 | NUR ---
Closing notes Patient pulled out IV. New IV inserted into left hand 22 gauge. Resumed IVF. Accucheck 78. Encourage patient to eat breakfast. Patient ate some applesauce. All needs met throughout the shift. Call light with the patient. Safety precautions in place. Will endorse care to day shift RN.
--- NOTE | 2019-07-16 07:30 | NUR ---
INITIAL NOTE PT RESTING IN BED, NO ACUTE DISTRESS NOTED, BREATHING EVEN AND UNLABORED. CALL LIGHT WITHIN REACH, BED IN LOW AND LOCKED POSITION WITH BED ALARM ON.
[2019-07-16 08:00] VITALS: BP_SYST 167
[2019-07-16] MEDS: MUPIROCIN 2% TOPICAL OINTMENT 22 GM NS SCH ×2 (09:00→21:27)
--- NOTE | 2019-07-16 09:45 | NUR ---
MORNING MEDICATIONS MEDICATIONS CRUSHED AND ADMINISTERED WITH PUDDING, PT TOLERATED WELL. ORAL CARE PERFORMED, PT TOLERATED WELL. PT COMPLAINING OF COLDNESS, OFFERED PT BLANKETS, PT COMPLIED. WILL CONTINUE TO MONITOR.
--- NOTE | 2019-07-16 09:50 | NUR ---
DR. SHANTA CHOW AT BEDSIDE EXAMINING PT. INFORMED MD THAT PT POTASSIUM 3.3, AND PT NEEDS DVT PROPHYLAXIS. NEW ORDERS RECEIVED, VERIFIED WITH READ BACK.
[2019-07-16] MEDS: PREDNISONE 5 MG TABLET PO SCH (09:52)
[2019-07-16] MEDS: LEVOFLOXACIN 500 MG/D5W 100 ML IV SCH (09:52)
[2019-07-16] MEDS: DIGOXIN 0.25 MG TABLET PO SCH (09:52)
[2019-07-16] MEDS: FAMOTIDINE 20 MG TABLET PO SCH (09:52)
[2019-07-16] MEDS: levETIRAcetam 500 MG TABLET PO SCH ×2 (09:52→21:25)
[2019-07-16] MEDS: AMITRIPTYLINE HCL 25 MG TABLET (ELAVIL) PO SCH ×2 (09:52→21:25)
[2019-07-16] MEDS: QUEtiapine FUMARATE 100 MG TABLET PO SCH ×2 (09:52→21:25)
[2019-07-16] MEDS: SERTRALINE HCL 50 MG TABLET PO SCH (09:53)
[2019-07-16] MEDS ORDERED: POTASSIUM CHLORIDE 20 MEQ TAB.PRT.SR PO ONE (11:00)
[2019-07-16 11:17] VITALS: BP_SYST 151
--- NOTE | 2019-07-16 11:35 | NUR ---
RN ROUNDS PT AWAKE, COMPLAINING OF DRY MOUTH, ORAL CARE PERFORMED. PT TOLERATED WELL.
--- NOTE | 2019-07-16 13:22 | NUR ---
Case mgt: S/W Dr. Hall re: dc back to [facility]-LOS 3 days/GLOS=2 days-he inquired about the stoof for C-diff-I explained that stool was mushy, not diarrhea so specimen not analyzed by lab. Per Dr. Hall, he wants stool specimen sent on swab w/NS, as he says pt has had diarrhea prior to admission here. I explained this to Shirley Renee chargeback specialist--she will f/u and is aware this is barrier to discharge. OZIEL STEELE
--- NOTE | 2019-07-16 14:00 | NUR ---
RN ROUNDS REPOSITIONED PT FOR COMFORT. IV ANTIBIOTICS ADMINISTERED. ORAL CARE PERFORMED, PT TOLERATED WELL.
[2019-07-16 15:21] VITALS: BP_SYST 143
--- NOTE | 2019-07-16 16:25 | NUR ---
WOUND EVALUATION: Wound Consult received from Dr. Hall. Thank you, Dr. Hall, for the consult. Patient received in a Alia Bed with an Isoflex SIOMARA mattress with low air loss therapy initiated, awake, alert, confused. Patient is able to turn in bed with minimal assist. Stephen Score is a 15. Past Medical History: Cerebrovascular Accident, Psychosis, Seizures, Hyperlipidemia, possible Diabetes Mellitus. Recent Labs: WBC 7.7, RBC 4.66, hemoglobin 13.4, hematocrit 41.2, potassium 3.3, BUN 4, creatinine 0.74, GFR 112, glucose 199, calcium 7.3, albumin 2.9. Microbiology: Culture results 2 in progress. Stool culture results in progress. Stool Shiga toxin results negative. MRSA screen results positive. Intrinsic factors that delay wound healing: Hypoalbuminemia, possible Diabetes Mellitus. Extrinsic factors that delay wound healing: Immobility. Wound Assessment: 1. Left Knee: Abrasion, present on admission. Wound bed has 100% red tissue. No odor, no drainage. Naomi-wound intact. Abrasion measures 1.2 cm x 0.1 cm. Recommend: Cleanse site with normal saline. Apply moisture barrier cream to abrasion and naomi-abrasion. Perform site care daily, and as needed for soiling. 2. Sacral area/Gluteal Sulcus: Intertriginous dermatitis with erythema and moisture associated skin damage, present on admission. Wound bed has 100% pink tissue. No odor, no drainage. Periwound intact. Wound measures 1.2 cm by 0.1 cm. Recommend: Cleanse site with normal saline. Apply moisture barrier cream to site. Perform site care daily, and as needed for dressing soiling or dislodgment. 3. Right heel: Blanchable redness, present on admission. Recommend: Elevate, offload and float bilateral heels with one pillow lengthwise under each extremity at all times. Also recommend: Reposition patient every 2 hours with pillow support and off-load pressure areas with pillows for pressure re-distribution. Offload, elevate and float bilateral heels with pillows. Perform skin care and monitor skin integrity Q shift. Use moisture barrier cream on buttocks and other moisture susceptible areas QID and as needed for soiling. Maintain patient on a low air-loss mattress.
[2019-07-16] MEDS: INSULIN REGULAR, HUMAN 100 UNITS/ML, 10 ML VIAL (humuLIN R) SUBCUT PRN (17:28)
--- NOTE | 2019-07-16 18:25 | NUR ---
CLOSING NOTE PT AWAKE, DENIES ANY PAIN OR DISCOMFORT. IVF INFUSING WELL. CALL LIGHT WITHIN REACH, BED IN LOW AND LOCKED POSITION WITH BED ALARM ON. ISOLATION PRECAUTIONS IN PLACE. ALL NEEDS MET THROUGHOUT SHIFT. PT CARE ENDORSED TO [employer]ANCE OFFICER RN.
--- NOTE | 2019-07-16 19:20 | NUR ---
OPENING NOTES RECEIVED PATIENT IN BED AWAKE VERBALLY RESPONSIVE. BREATHING UNLABORED ON ROOM AIR. DENIES PAIN AT THIS TIME. IVF INFUSING. BED IN LOWEST LOCKED POSITION WITH ALARM ON. CALL LIGHT WITH IN REACH.
[2019-07-16 21:20] VITALS: BP_SYST 159
[2019-07-16] MEDS: ATORVASTATIN 10 MG TABLET PO SCH (21:25)
--- NOTE | 2019-07-16 21:27 | NUR ---
MED PASS PATIENT DUE MEDICATIONS GIVEN. VITAL SIGNS STABLE.
[2019-07-17] MEDS: IPRATROPIUM/ALBUTEROL SULFATE 3 ML AMPUL.NEB (DUONEB) INH SCH ×3 (01:15→13:13)
--- NOTE | 2019-07-17 01:30 | NUR ---
INCONTINENCE CARE INCONTINENCE CARE DONE. PATIENT CHUX CHANGED.
[2019-07-17 01:44] VITALS: BP_SYST 151
--- NOTE | 2019-07-17 04:30 | NUR ---
AM CARE AM CARE DONE. ALL LINENS CHANGED. COLLECTED URINE SPECIMEN FOR URINE CULTURE. STARTED NEW IV LINE TO RT WRIST G#22 WITH GOOD BLOOD RETURN.
[2019-07-17] MEDS: metroNIDAZOLE 500 mg/NS 100 ML IV SCH ×2 (06:07→14:06)
--- NOTE | 2019-07-17 07:07 | NUR ---
CLOSING NOTES PATIENT RESTING IN BED. BREATHING UNLABORED ON ROOM AIR. IVF INFUSING WITH IV LINE INTACT. PATIENT NEEDS ATTENDED. SEIZURE PRECAUTIONS IN PLACED. BED IN LOWEST LOCKED POSITION WITH ALARM ON. CALL LIGHT WITH IN REACH.
--- NOTE | 2019-07-17 07:46 | NUR ---
INITIAL NOTE PT AWAKE, REPOSITION UP IN BED TO EAT BREAKFAST. REINFORCE EDUCATION ON USE AND PURPOSE OF IV SITE. PT VERBALIZED UNDERSTANDING. CALL LIGHT WITHIN REACH, BED IN LOW AND LOCKED POSITION WITH BED ALARM ON . ISOLATION PRECAUTIONS IN PLACE.
[2019-07-17] MEDS: D5/0.45 NS 1,000 ML IV SCH (09:38)
[2019-07-17] MEDS: LEVOFLOXACIN 500 MG/D5W 100 ML IV SCH (09:38)
[2019-07-17] MEDS: SERTRALINE HCL 50 MG TABLET PO SCH (09:39)
[2019-07-17] MEDS: MUPIROCIN 2% TOPICAL OINTMENT 22 GM NS SCH (09:39)
[2019-07-17] MEDS: QUEtiapine FUMARATE 100 MG TABLET PO SCH (09:39)
[2019-07-17] MEDS: DIGOXIN 0.25 MG TABLET PO SCH (09:39)
[2019-07-17] MEDS: PREDNISONE 5 MG TABLET PO SCH (09:39)
[2019-07-17] MEDS: levETIRAcetam 500 MG TABLET PO SCH (09:39)
[2019-07-17] MEDS: AMITRIPTYLINE HCL 25 MG TABLET (ELAVIL) PO SCH (09:39)
[2019-07-17] MEDS: FAMOTIDINE 20 MG TABLET PO SCH (09:39)
--- NOTE | 2019-07-17 09:46 | NUR ---
RN ROUNDS PT RESTING IN BED, NO ACUTE DISTRESS NOTED, BREATHING EVEN AND UNLABORED.
[2019-07-17 09:50] VITALS: BP_SYST 151
--- NOTE | 2019-07-17 11:15 | NUR ---
REFUSING SCDS PT AWAKE, REFUSING SCD'S AT THIS TIME, EDUCATED PT ON USE AND PURPOSE OF SCD'S, PT WOULD LIKE THEM OFF FOR NOW.
[2019-07-17 11:25] VITALS: BP_SYST 163
--- NOTE | 2019-07-17 13:20 | NUR ---
RN ROUNDS PT SITTING UP IN BED EATING LUNCH. DENIES ANY PAIN OR DISCOMFORT AT THIS TIME. WILL CONTINUE TO MONITOR.
--- NOTE | 2019-07-17 14:51 | NUR ---
DC Barrier: delayed UA culture collection: Per Stephani/Lab, the first UA test was done on admission/ER then the culture was cancelled and recollected today. It will take up to 3 days for the result. - Dr Hall made aware. >> CM received a call from MARYAM/Pam Shelton , concerning pt discharge day. The pt has 7 days bed hold at [facility] It will on Thursday 07/19. -- Dr Hall made aware. The md order dcp to snf if cleared by ID. >> CM LVM to dr. Yuniel Zuniga requesting his reevaluation for the dc with abx with pending UA culture. -- CM to f/u.
--- NOTE | 2019-07-17 15:20 | NUR ---
RN ROUNDS PT RESTING IN BED, NO ACUTE DISTRESS NOTED. BREATHING EVEN AND UNLABORED.
[2019-07-17 15:49] VITALS: BP_SYST 151
--- NOTE | 2019-07-17 16:33 | NUR ---
INCONTINENT INCONTINENT OF URINE. CHANGED PT, REPOSITIONED FOR COMFORT. PT TOLERATED WELL.
--- NOTE | 2019-07-17 17:10 | NUR ---
Discharge Planning: DCP arrange transportation with [facility] ([phone]) 7:00pm P/U to [place] ([phone]) Rm 17A. DCP took patient packet to nurse station nurse aware.
--- NOTE | 2019-07-17 17:35 | NUR ---
[facility] SNF REPORT GIVEN TO JOSÉ MIGUEL. PT TO BE PICKED UP AT 7PM AND TAKEN TO SNF TO ROOM 17A. SPOKE WITH CARLOS, [employer] CAR OPERATOR FROM [facility], CARLOS CONFIRMED SHE SPOKE WITH RAFIQ HOLUGIN FROM [facility], PT IS CONFIRMED AND HAS ROOM AT FACILITY. DPOA AWARE.
[2019-07-17] MEDS ORDERED: LEVO750T45 PO ×2 (17:43→17:46)
[2019-07-17 17:52] VITALS: BP_SYST 151
--- NOTE | 2019-07-17 19:25 | NUR ---
DISCHARGE NOTE DISCHARGE INSTRUCTIONS GIVEN TO AMBULANCE. PT ARRIVED WITH NO PERSONAL BELONGINGS. IV CATHETER REMOVED, CATHETER INTACT, NO BLEEDING. PT DENIES ANY PAIN OR DISCOMFORT. ID HOSPITAL BAND REMOVED, PLAIN ID BAND PLACED. PT TAKEN VIA GURNEY TO [facility] TO ROOM 17A.
== END 2019-07-17 19:20 | DRG 872 ==
LOC: SED 16:48 → SMU 22:09
PROVIDERS: ADMIT Internal Medicine; ATTEND Internal Medicine
DX: A41.9 Sepsis, unspecified organism (principal); N39.0 Urinary tract infection, site not specified; I69.351 Hemiplegia and hemiparesis following cerebral infarction affecting right dominant side; G40.909 Epilepsy, unspecified, not intractable, without status epilepticus; E78.5 Hyperlipidemia, unspecified; K52.9 Noninfective gastroenteritis and colitis, unspecified; E11.51 Type 2 diabetes mellitus with diabetic peripheral angiopathy without gangrene; Z22.322 Carrier or suspected carrier of Methicillin resistant Staphylococcus aureus; Z88.0 Allergy status to penicillin; Z88.6 Allergy status to analgesic agent; Z79.899 Other long term (current) drug therapy; Z79.52 Long term (current) use of systemic steroids
CPT/HCPCS: 36415; 80048; 80053; 81000-TC; 82962; 83605; 85025; 86710; 87040-TC; 87045-TC; 87046; 87081; 87086; 94640; 94760; 96361; 96365; 96374; 96375; 99285; A6209; J1815; J1956; J2060; J2543; J3370; J3490; J7030; J7050; J7512; J7620